=== PATIENT | male | born 1960 | race Caucasian/White ===

== ENCOUNTER 2021-02-13 11:46 | Inpatient (IN) | payer BC ==
[2021-02-13] MEDS ORDERED: Sodium Chloride 0.9% 2.5 ML Syringe FLUSH PRN (11:52)
[2021-02-13] MEDS ORDERED: Sodium Chloride 0.9% 10 ML Syringe FLUSH PRN (11:52)
--- NOTE | 2021-02-13 12:00 | EDM.PDOC ---
ED HPI GENERAL MEDICAL PROBLEM - General Chief Complaint: General Stated Complaint: SOB/EMS ARRIVAL Time Seen by Provider: 02/13/21 11:50 Source of Information: Reports: Patient, EMS - History of Present Illness INITIAL COMMENTS - FREE TEXT/NARRATIVE: Patient presents brought in EMS when at work he was found not to be acting quite right. Patient states he has been not feeling well since Saturday. He is not really able to tell what it is but is bothering him. Paramedics noted the patient was hypoxic and placed him on oxygen. No other medical information available secondary to patient's clinical condition - Related Data Allergies Allergy/AdvReac Type Severity Reaction Status Date / Time No Known Allergies Allergy Verified 02/13/21 11:55 Home Meds: Home Meds . [No Known Home Meds] 02/13/21 [History] ED ROS GENERAL - Review of Systems Review Of Systems: Unable To Obtain Reason Not Obtained: Clinical condition ED EXAM, GENERAL - Physical Exam Exam: See Below Free Text/Narrative:: O2 saturation was 91% on partial nonrebreather- low CONSTITUTIONAL: Moderate distress SKIN: Warm, dry, and intact without rash HENT: Normocephalic, atraumatic, PULMONARY: Labored breathing, tachypnea, bilateral rales CARDIOVASCULAR: regular rate, No murmur, rubs, or gallops GASTROINTESTINAL: soft, nondistended, nontender NEUROLOGIC: Patient with global confusion and only getting words out. Otherwise light touch 5 out of 5 power bilateral equal and symmetric in upper and lower extremity throughout without deficit. 2 through 12 intact. MUSCULOSKELETAL: no gross deformities, atraumatic PSYCHIATRIC: normal mood and affect Course - Vital Signs Text/Narrative:: Differential diagnosis: Pneumonia, Covid, CHF, metabolic encephalopathy, stroke, internal hemorrhage, other Patient presents to the emergency department complaining of altered mental status and hypoxia. Patient positive for Covid. Chest x-ray consistent with Covid. Patient on high flow nasal cannula. Admitted to the ICU for continued treatment and management. Critical care: I spent 45 minutes of critical care time with this patient not including reportable procedures. There was an acute impairment of an organ system with a high probability of imminent or life threatening deterioration in the patient`s condition. Interventions and changes required in the course of therapy are located in the chart. Time involved was spent in direct patient care, reviewing ancillary data, old records, consulting with decision makers, EMS, other doctors, giving orders and documenting. Last Recorded V/S: Last Vital Signs Temp 37.3 C 02/13/21 11:48 Pulse 100 02/13/21 13:20 Resp 18 02/13/21 13:20 BP 129/73 02/13/21 13:20 Pulse Ox 91 L 02/13/21 13:20 - Orders/Labs/Meds Orders: Active Orders 24 hr Category Date Time Status Admission Status [Patient Status] [ADT] Stat ADT 02/13/21 14:06 Active Cardiac Monitoring [RC] . DIRECTED Care 02/13/21 11:52 Active Cardiac Monitoring [RC] . DIRECTED Care 02/13/21 14:06 Active Pulse Oximetry [RC] ASDIRECTED Care 02/13/21 11:52 Active ABG [BLOOD GAS ARTERIAL] [BG] Stat Lab 02/13/21 14:07 Ordered BILIRUBIN DIRECT [CHEM] DAILY Lab 02/13/21 13:45 Ordered BILIRUBIN DIRECT [CHEM] DAILY Lab 02/14/21 13:45 Ordered BILIRUBIN DIRECT [CHEM] DAILY Lab 02/15/21 13:45 Ordered BILIRUBIN DIRECT [CHEM] DAILY Lab 02/16/21 13:45 Ordered BILIRUBIN DIRECT [CHEM] DAILY Lab 02/17/21 13:45 Ordered BILIRUBIN DIRECT [CHEM] Stat Lab 02/13/21 13:43 Ordered COMPREHENSIVE METABOLIC PN,CMP [CHEM] DAILY Lab 02/13/21 13:45 Ordered COMPREHENSIVE METABOLIC PN,CMP [CHEM] DAILY Lab 02/14/21 13:45 Ordered COMPREHENSIVE METABOLIC PN,CMP [CHEM] DAILY Lab 02/15/21 13:45 Ordered COMPREHENSIVE METABOLIC PN,CMP [CHEM] DAILY Lab 02/16/21 13:45 Ordered COMPREHENSIVE METABOLIC PN,CMP [CHEM] DAILY Lab 02/17/21 13:45 Ordered COMPREHENSIVE METABOLIC PN,CMP [CHEM] Stat Lab 02/13/21 13:43 Ordered CULTURE BLOOD [BC] Stat Lab 02/13/21 12:35 Received CULTURE BLOOD [BC] Stat Lab 02/13/21 12:42 Received UA W/COOPER RFLX IF INDICATED [URIN] Stat Lab 02/13/21 11:52 Ordered Sodium Chloride 0.9% [Saline Flush] Med 02/13/21 11:52 Active 10 ml FLUSH ASDIRECTED PRN Sodium Chloride 0.9% [Saline Flush] Med 02/13/21 11:52 Active 2.5 ml FLUSH ASDIRECTED PRN Blood Culture x2 Reflex Set [OM.PC] Stat Oth 02/13/21 11:52 Ordered Saline Lock Insert [OM.PC] Stat Ot 02/13/21 11:52 Ordered Medication Orders Sodium Chloride (Sodium Chloride 0.9% 10 Ml Syringe) 10 ml FLUSH ASDIRECTED PRN PRN Reason: Keep Vein Open Last Admin: 02/13/21 12:04 Dose: 10 ml Documented by: RENEE Sodium Chloride (Sodium Chloride 0.9% 2.5 Ml Syringe) 2.5 ml FLUSH ASDIRECTED PRN PRN Reason: Keep Vein Open Last Admin: 02/13/21 12:08 Dose: 2.5 ml Documented by: RENEE Labs: Laboratory Tests 02/13/21 02/13/21 02/13/21 Range/Units 11:50 11:50 11:50 WBC 6.73 (4.0-11.0) K/uL RBC 5.89 (4.50-5.90) M/uL Hgb 17.7 H (13.0-17.0) g/dL Hct 53.5 H (38.0-50.0) % MCV 90.8 (80.0-98.0) fL MCH 30.1 (27.0-32.0) pg MCHC 33.1 (31.0-37.0) g/dL RDW Std Deviation 53.0 (28.0-62.0) fl RDW Coeff of Lakshmi 16 H (11.0-15.0) % Plt Count 213 (150-400) K/uL MPV 10.70 (7.40-12.00) fL Neut % (Auto) 67.0 (48.0-80.0) % Lymph % (Auto) 15.6 L (16.0-40.0) % Mcnairy % (Auto) 17.1 H (0.0-15.0) % Eos % (Auto) 0.0 (0.0-7.0) % Baso % (Auto) 0.3 (0.0-1.5) % Neut # (Auto) 4.5 (1.4-5.7) K/uL Lymph # (Auto) 1.1 (0.6-2.4) K/uL Mcnairy # (Auto) 1.2 H (0.0-0.8) K/uL Eos # (Auto) 0.0 (0.0-0.7) K/uL Baso # (Auto) 0.0 (0.0-0.1) K/uL Nucleated RBC % 3.0 /100WBC Nucleated RBCs # 0 K/uL APTT 28.7 (18.6-31.3) SEC Sodium 133 L (136-148) mmol/L Potassium 4.9 (3.5-5.1) mmol/L Chloride 95 L (98-107) mmol/L Carbon Dioxide 31.1 (21.0-32.0) mmol/L BUN 24 H (7.0-18.0) mg/dL Creatinine 1.1 (0.8-1.3) mg/dL Est Cr Clr Drug Dosing 80.34 mL/min Estimated GFR (MDRD) > 60.0 ml/min Glucose 134 H (74-106) mg/dL Lactic Acid (0.4-2.0) mmol/L Calcium 7.6 L (8.5-10.1) mg/dL Total Bilirubin 0.9 (0.2-1.0) mg/dL AST 24 (15-37) IU/L ALT 28 (14-63) IU/L Alkaline Phosphatase 47 (46-116) U/L Troponin I < 0.050 (0.000-0.056) ng/mL C-Reactive Protein 5.90 H (0.00-0.90) mg/dL B-Natriuretic Peptide (<100) PG/ML Total Protein 7.6 (6.4-8.2) g/dL Albumin 2.8 L (3.4-5.0) g/dL Globulin 4.8 H (2.6-4.0) g/dL Albumin/Globulin Ratio 0.6 L (0.9-1.6) SARS-CoV-2 RNA (FELIZ) (NEGATIVE) 02/13/21 02/13/21 02/13/21 Range/Units 11:50 12:01 12:35 WBC (4.0-11.0) K/uL RBC (4.50-5.90) M/uL Hgb (13.0-17.0) g/dL Hct (38.0-50.0) % MCV (80.0-98.0) fL MCH (27.0-32.0) pg MCHC (31.0-37.0) g/dL RDW Std Deviation (28.0-62.0) fl RDW Coeff of Lakshmi (11.0-15.0) % Plt Count (150-400) K/uL MPV (7.40-12.00) fL Neut % (Auto) (48.0-80.0) % Lymph % (Auto) (16.0-40.0) % Mcnairy % (Auto) (0.0-15.0) % Eos % (Auto) (0.0-7.0) % Baso % (Auto) (0.0-1.5) % Neut # (Auto) (1.4-5.7) K/uL Lymph # (Auto) (0.6-2.4) K/uL Mcnairy # (Auto) (0.0-0.8) K/uL Eos # (Auto) (0.0-0.7) K/uL Baso # (Auto) (0.0-0.1) K/uL Nucleated RBC % /100WBC Nucleated RBCs # K/uL APTT (18.6-31.3) SEC Sodium (136-148) mmol/L Potassium (3.5-5.1) mmol/L Chloride (98-107) mmol/L Carbon Dioxide (21.0-32.0) mmol/L BUN (7.0-18.0) mg/dL Creatinine (0.8-1.3) mg/dL Est Cr Clr Drug Dosing mL/min Estimated GFR (MDRD) ml/min Glucose (74-106) mg/dL Lactic Acid 1.2 (0.4-2.0) mmol/L Calcium (8.5-10.1) mg/dL Total Bilirubin (0.2-1.0) mg/dL AST (15-37) IU/L ALT (14-63) IU/L Alkaline Phosphatase (46-116) U/L Troponin I (0.000-0.056) ng/mL C-Reactive Protein (0.00-0.90) mg/dL B-Natriuretic Peptide 55 (<100) PG/ML Total Protein (6.4-8.2) g/dL Albumin (3.4-5.0) g/dL Globulin (2.6-4.0) g/dL Albumin/Globulin Ratio (0.9-1.6) SARS-CoV-2 RNA (FELIZ) POSITIVE H (NEGATIVE) Meds: Medications Generic Name Dose Route Start Last Admin Trade Name Freq PRN Reason Stop Dose Admin Sodium Chloride 10 ml 02/13/21 11:52 02/13/21 12:04 Sodium Chloride 0.9% 10 Ml Syringe FLUSH 10 ml ASDIRECTED PRN Administration Keep Vein Open Sodium Chloride 2.5 ml 02/13/21 11:52 02/13/21 12:08 Sodium Chloride 0.9% 2.5 Ml Syringe FLUSH 2.5 ml ASDIRECTED PRN Administration Keep Vein Open Discontinued Medications Generic Name Dose Route Start Last Admin Trade Name Freq PRN Reason Stop Dose Admin Dexamethasone 6 mg 02/13/21 13:43 02/13/21 13:53 Dexamethasone 10 Mg/Ml Sdv IVPUSH 02/13/21 13:44 6 mg ONETIME ONE Administration Remdesivir 200 mg/ Sodium 250 mls @ 250 mls/hr 02/13/21 13:43 Chloride IV 02/13/21 13:44 ONETIME ONE Departure - Departure Time of Disposition: 14:09 Disposition: Admitted As Inpatient 68 Condition: Serious Clinical Impression: Pneumonia due to COVID-19 virus - Discharge Information Referrals: PCP,None [Primary Care Provider] - Forms: ED Department Discharge Sepsis Event Note (ED) - Focused Exam Vital Signs: Vital Signs Temp Pulse Resp BP Pulse Ox Pulse Ox 02/13/21 13:20 100 18 129/73 91 L 02/13/21 12:06 94 L 02/13/21 11:48 37.3 C 106 H 18 138/80 94 L - My Orders Last 24 Hours: My Active Orders 02/13/21 11:52 Cardiac Monitoring [RC] . DIRECTED Pulse Oximetry [RC] ASDIRECTED UA W/COOPER RFLX IF INDICATED [URIN] Stat Sodium Chloride 0.9% [Saline Flush] 10 ml FLUSH ASDIRECTED PRN Sodium Chloride 0.9% [Saline Flush] 2.5 ml FLUSH ASDIRECTED PRN Blood Culture x2 Reflex Set [OM.PC] Stat Saline Lock Insert [OM.PC] Stat 02/13/21 12:35 CULTURE BLOOD [BC] Stat 02/13/21 12:42 CULTURE BLOOD [BC] Stat 02/13/21 13:43 BILIRUBIN DIRECT [CHEM] Stat COMPREHENSIVE METABOLIC PN,CMP [CHEM] Stat 02/13/21 13:45 BILIRUBIN DIRECT [CHEM] DAILY COMPREHENSIVE METABOLIC PN,CMP [CHEM] DAILY 02/13/21 14:06 Admission Status [Patient Status] [ADT] Stat Cardiac Monitoring [RC] . DIRECTED 02/13/21 14:07 ABG [BLOOD GAS ARTERIAL] [BG] Stat 02/14/21 13:45 BILIRUBIN DIRECT [CHEM] DAILY COMPREHENSIVE METABOLIC PN,CMP [CHEM] DAILY 02/15/21 13:45 BILIRUBIN DIRECT [CHEM] DAILY COMPREHENSIVE METABOLIC PN,CMP [CHEM] DAILY 02/16/21 13:45 BILIRUBIN DIRECT [CHEM] DAILY COMPREHENSIVE METABOLIC PN,CMP [CHEM] DAILY 02/17/21 13:45 BILIRUBIN DIRECT [CHEM] DAILY COMPREHENSIVE METABOLIC PN,CMP [CHEM] DAILY - Assessment/Plan Last 24 Hours: My Active Orders 02/13/21 11:52 Cardiac Monitoring [RC] . DIRECTED Pulse Oximetry [RC] ASDIRECTED UA W/COOPER RFLX IF INDICATED [URIN] Stat Sodium Chloride 0.9% [Saline Flush] 10 ml FLUSH ASDIRECTED PRN Sodium Chloride 0.9% [Saline Flush] 2.5 ml FLUSH ASDIRECTED PRN Blood Culture x2 Reflex Set [OM.PC] Stat Saline Lock Insert [OM.PC] Stat 02/13/21 12:35 CULTURE BLOOD [BC] Stat 02/13/21 12:42 CULTURE BLOOD [BC] Stat 02/13/21 13:43 BILIRUBIN DIRECT [CHEM] Stat COMPREHENSIVE METABOLIC PN,CMP [CHEM] Stat 02/13/21 13:45 BILIRUBIN DIRECT [CHEM] DAILY COMPREHENSIVE METABOLIC PN,CMP [CHEM] DAILY 02/13/21 14:06 Admission Status [Patient Status] [ADT] Stat Cardiac Monitoring [RC] . DIRECTED 02/13/21 14:07 ABG [BLOOD GAS ARTERIAL] [BG] Stat 02/14/21 13:45 BILIRUBIN DIRECT [CHEM] DAILY COMPREHENSIVE METABOLIC PN,CMP [CHEM] DAILY 02/15/21 13:45 BILIRUBIN DIRECT [CHEM] DAILY COMPREHENSIVE METABOLIC PN,CMP [CHEM] DAILY 02/16/21 13:45 BILIRUBIN DIRECT [CHEM] DAILY COMPREHENSIVE METABOLIC PN,CMP [CHEM] DAILY 02/17/21 13:45 BILIRUBIN DIRECT [CHEM] DAILY COMPREHENSIVE METABOLIC PN,CMP [CHEM] DAILY
[2021-02-13 12:41] LABS: BLOOD UREA NITROGEN,BUN 24 mg/dL (7.0-18.0); CARBON DIOXIDE,CO2 31.1 mmol/L (21.0-32.0); CHLORIDE,CL 95 mmol/L (98-107); GLUCOSE RANDOM 134 mg/dL (74-106); POTASSIUM,K 4.9 mmol/L (3.5-5.1); SODIUM,NA 133 mmol/L (136-148)
--- NOTE | 2021-02-13 13:04 | CR ---
INDICATION: SOB. TECHNIQUE: Portable AP image of the chest. COMPARISON: None. FINDINGS: Very shallow inspiration and diffuse infiltrates. No obvious pleural effusion. Heart size at least mildly enlarged. Pulmonary veins cannot be assessed. No significant bony abnormality. IMPRESSION: Very shallow inspiration with bilateral infiltrates and a least mild cardiomegaly. Question CHF with pulmonary edema. Dictated by Sukhdev Black MD @ 02/13/2021 1:03:30 PM (Electronically Signed)
--- NOTE | 2021-02-13 13:35 | CT ---
INDICATION: Altered mental status. TECHNIQUE: CT of the head without contrast. Coronal and sagittal reformats are included. COMPARISON: None. FINDINGS: Motion artifact degrades fine detail. No acute intracranial hemorrhage. No evidence of acute cortical infarct. Slight blurring of the lazar-white matter junction may be secondary to artifact. No mass effect or midline shift. No hydrocephalus. Hyperattenuation of the intracranial vessels diffusely, possibly reflecting hemoconcentration. No acute osseous abnormalities. Left maxillary sinus mucosal thickening with dependent frothy secretions. Paranasal sinuses are otherwise clear. Mastoid air cells are clear. Normal soft tissues. IMPRESSION: 1. Motion artifact degrades fine detail. 2. Accounting for this, no acute infarction or acute intracranial hemorrhage is identified. 3. Slight blurring of the lazar-white matter junction may be secondary to artifact. Early/mild hypoxic ischemic injury could be considered in the appropriate clinical setting. Brain MRI would be useful for further evaluation if clinically indicated. 4. Diffuse hyperdensity of the intracranial vessels, possibly reflecting hemoconcentration. Please note that all CT scans at this facility use dose modulation, iterative reconstruction, and/or weight-based dosing when appropriate to reduce radiation dose to as low as reasonably achievable. Dictated by Bryan Soto MD @ 02/13/2021 1:33:29 PM (Electronically Signed)
[2021-02-13] MEDS ORDERED: REMDESIVIR 200 MG in Sodium Chloride 0.9% 250 ML IV ONE (13:43)
[2021-02-13] MEDS ORDERED: Dexamethasone 10 MG/ML SDV IVPUSH ONE (13:43)
[2021-02-13 15:03] LABS: BLOOD UREA NITROGEN,BUN 22 mg/dL (7.0-18.0); CARBON DIOXIDE,CO2 32.2 mmol/L (21.0-32.0); CHLORIDE,CL 97 mmol/L (98-107); GLUCOSE RANDOM 133 mg/dL (74-106); POTASSIUM,K 4.9 mmol/L (3.5-5.1); SODIUM,NA 134 mmol/L (136-148)
--- NOTE | 2021-02-13 15:16 | PCM.HP.2 ---
<Elle Nesbitt - Last Filed: 02/13/21 18:08> H&P History of Present Illness - General Date of Service: 02/13/21 Admit Problem/Dx: Admission Diagnosis/Problem Admission Diagnosis/Problem Viral pneumonia - History of Present Illness Initial Comments - Free Text/Narative: 60-year-old male with a history of obstructive sleep apnea is brought to the ER by EMS after coworkers found him altered and confused. I called and spoke with the patient's son, Vasile who lives in [place]. As per son the patient's only history is obstructive sleep apnea for which he uses a CPAP at night. As per the son, the patient lives in [place] alone and his , son and daughter live in [place]. They speak once per month. He is not aware of any medications his father is taken. He denies any known drug allergies. Patient is a smoker. CODE STATUS is full code. ER course: Patient presents with altered mental status and hypoxia. Labored breathing and tachypneic. T 37.3. P1 100. BP 129/73. WBC 6.73. Hgb 17.7. Hematocrit 53.5. Platelet count 213. Sodium 133. Potassium 4.9. Chloride 31.1. BUN 24. Creatinine 1.1. Glucose 134. Troponin negative. CRP 5.9. Lactic acid 1.2. BNP 55. SARS-CoV-2 positive. Patient started on dexamethasone and remdesivir. Patient is currently on Vapotherm, 45 L, FiO2 86. CXR: Bilateral infiltrates and mild cardiomegaly. Question CHF with pulmonary edema. Head CT: No acute infarction or acute intracranial hemorrhage identified. PMH: EDD Medications: None. Allergies: NKDA CODE STATUS: FULL CODE. - Related Data Allergies/Adverse Reactions: Allergies Allergy/AdvReac Type Severity Reaction Status Date / Time No Known Allergies Allergy Verified 02/13/21 11:55 Home Medications: Home Meds . [No Known Home Meds] 02/13/21 [History] Past Medical History - Past Health History Medical/Surgical History: Denies Medical/Surgical History - Infectious Disease History Infectious Disease History: Reports: None Social & Family History - Family History Family Medical History: No Pertinent Family History - Tobacco Use Tobacco Use Status *Q: Never Tobacco User - Recreational Drug Use Recreational Drug Use: No H&P Review of Systems - Review of Systems: Review Of Systems: See Below Exam - Exam Exam: See Below - Vital Signs Vital Signs: Last Vital Signs Temp 99.1 F 02/13/21 11:48 Pulse 100 02/13/21 13:20 Resp 18 02/13/21 13:20 BP 129/73 02/13/21 13:20 Pulse Ox 91 L 02/13/21 13:20 Weight: 99.79 kg - Exam Quality Assessment: Supplemental Oxygen General: Lethargic. No: Alert, Oriented, Cooperative HEENT: Conjunctiva Clear, EACs Clear Neck: Supple, Trachea Midline Lungs: Decreased Breath Sounds, Rales Cardiovascular: Regular Rhythm, Normal S1, Normal S2, Tachycardia GI/Abdominal Exam: Normal Bowel Sounds, Soft, Non-Tender Back Exam: Normal Inspection Extremities: Normal Inspection, Normal Range of Motion, Non-Tender, No Pedal Edema Peripheral Pulses: 2+: Dorsalis Pedis (L), Dorsalis Pedis (R) Skin: Warm, Dry, Intact Neuro Extensive - Mental Status: Disorientation to Person, Disorientation to Place, Disorientation to Time, Inattentive - Patient Data Lab Results Last 24 hrs: Laboratory Results - last 24 hr 02/13/21 02/13/21 02/13/21 Range/Units 11:50 11:50 11:50 WBC 6.73 (4.0-11.0) K/uL RBC 5.89 (4.50-5.90) M/uL Hgb 17.7 H (13.0-17.0) g/dL Hct 53.5 H (38.0-50.0) % MCV 90.8 (80.0-98.0) fL MCH 30.1 (27.0-32.0) pg MCHC 33.1 (31.0-37.0) g/dL RDW Std Deviation 53.0 (28.0-62.0) fl RDW Coeff of Lakshmi 16 H (11.0-15.0) % Plt Count 213 (150-400) K/uL MPV 10.70 (7.40-12.00) fL Neut % (Auto) 67.0 (48.0-80.0) % Lymph % (Auto) 15.6 L (16.0-40.0) % Garfield % (Auto) 17.1 H (0.0-15.0) % Eos % (Auto) 0.0 (0.0-7.0) % Baso % (Auto) 0.3 (0.0-1.5) % Neut # (Auto) 4.5 (1.4-5.7) K/uL Lymph # (Auto) 1.1 (0.6-2.4) K/uL Garfield # (Auto) 1.2 H (0.0-0.8) K/uL Eos # (Auto) 0.0 (0.0-0.7) K/uL Baso # (Auto) 0.0 (0.0-0.1) K/uL Nucleated RBC % 3.0 /100WBC Nucleated RBCs # 0 K/uL APTT 28.7 (18.6-31.3) SEC Sodium 133 L (136-148) mmol/L Potassium 4.9 (3.5-5.1) mmol/L Chloride 95 L (98-107) mmol/L Carbon Dioxide 31.1 (21.0-32.0) mmol/L BUN 24 H (7.0-18.0) mg/dL Creatinine 1.1 (0.8-1.3) mg/dL Est Cr Clr Drug Dosing 80.34 mL/min Estimated GFR (MDRD) > 60.0 ml/min Glucose 134 H (74-106) mg/dL Lactic Acid (0.4-2.0) mmol/L Calcium 7.6 L (8.5-10.1) mg/dL Total Bilirubin 0.9 (0.2-1.0) mg/dL AST 24 (15-37) IU/L ALT 28 (14-63) IU/L Alkaline Phosphatase 47 (46-116) U/L Troponin I < 0.050 (0.000-0.056) ng/mL C-Reactive Protein 5.90 H (0.00-0.90) mg/dL B-Natriuretic Peptide (<100) PG/ML Total Protein 7.6 (6.4-8.2) g/dL Albumin 2.8 L (3.4-5.0) g/dL Globulin 4.8 H (2.6-4.0) g/dL Albumin/Globulin Ratio 0.6 L (0.9-1.6) SARS-CoV-2 RNA (FELIZ) (NEGATIVE) 02/13/21 02/13/21 02/13/21 Range/Units 11:50 12:01 12:35 WBC (4.0-11.0) K/uL RBC (4.50-5.90) M/uL Hgb (13.0-17.0) g/dL Hct (38.0-50.0) % MCV (80.0-98.0) fL MCH (27.0-32.0) pg MCHC (31.0-37.0) g/dL RDW Std Deviation (28.0-62.0) fl RDW Coeff of Lakshmi (11.0-15.0) % Plt Count (150-400) K/uL MPV (7.40-12.00) fL Neut % (Auto) (48.0-80.0) % Lymph % (Auto) (16.0-40.0) % Garfield % (Auto) (0.0-15.0) % Eos % (Auto) (0.0-7.0) % Baso % (Auto) (0.0-1.5) % Neut # (Auto) (1.4-5.7) K/uL Lymph # (Auto) (0.6-2.4) K/uL Garfield # (Auto) (0.0-0.8) K/uL Eos # (Auto) (0.0-0.7) K/uL Baso # (Auto) (0.0-0.1) K/uL Nucleated RBC % /100WBC Nucleated RBCs # K/uL APTT (18.6-31.3) SEC Sodium (136-148) mmol/L Potassium (3.5-5.1) mmol/L Chloride (98-107) mmol/L Carbon Dioxide (21.0-32.0) mmol/L BUN (7.0-18.0) mg/dL Creatinine (0.8-1.3) mg/dL Est Cr Clr Drug Dosing mL/min Estimated GFR (MDRD) ml/min Glucose (74-106) mg/dL Lactic Acid 1.2 (0.4-2.0) mmol/L Calcium (8.5-10.1) mg/dL Total Bilirubin (0.2-1.0) mg/dL AST (15-37) IU/L ALT (14-63) IU/L Alkaline Phosphatase (46-116) U/L Troponin I (0.000-0.056) ng/mL C-Reactive Protein (0.00-0.90) mg/dL B-Natriuretic Peptide 55 (<100) PG/ML Total Protein (6.4-8.2) g/dL Albumin (3.4-5.0) g/dL Globulin (2.6-4.0) g/dL Albumin/Globulin Ratio (0.9-1.6) SARS-CoV-2 RNA (FELIZ) POSITIVE H (NEGATIVE) Result Diagrams: 02/13/21 11:50 02/13/21 14:04 Sepsis Event Note - Focused Exam Vital Signs: Vital Signs Temp Pulse Resp BP Pulse Ox Pulse Ox 02/13/21 13:20 100 18 129/73 91 L 02/13/21 12:06 94 L 02/13/21 11:48 99.1 F 106 H 18 138/80 94 L - Problem List (1) Pneumonia due to COVID-19 virus SNOMED Code(s): 418075415543422555 ICD Code: U07.1 - COVID-19; J12.82 - PNEUMONIA DUE TO CORONAVIRUS DISEASE 2 019 Status: Acute Current Visit: Yes (2) AMS (altered mental status) SNOMED Code(s): 429682248 ICD Code: R41.82 - ALTERED MENTAL STATUS, UNSPECIFIED Status: Acute Current Visit: Yes Problem List Initiated/Reviewed/Updated: Yes Orders Last 24hrs: Active Orders 24 hr Category Date Time Status Admission Status [Patient Status] [ADT] Stat ADT 02/13/21 14:06 Active Cardiac Monitoring [RC] . DIRECTED Care 02/13/21 11:52 Active Cardiac Monitoring [RC] . DIRECTED Care 02/13/21 14:06 Active Pulse Oximetry [RC] ASDIRECTED Care 02/13/21 11:52 Active ABG [BLOOD GAS ARTERIAL] [BG] Stat Lab 02/13/21 14:07 Ordered BILIRUBIN DIRECT [CHEM] DAILY Lab 02/14/21 13:45 Ordered BILIRUBIN DIRECT [CHEM] DAILY Lab 02/15/21 13:45 Ordered BILIRUBIN DIRECT [CHEM] DAILY Lab 02/16/21 13:45 Ordered BILIRUBIN DIRECT [CHEM] DAILY Lab 02/17/21 13:45 Ordered BILIRUBIN DIRECT [CHEM] Stat Lab 02/13/21 14:04 Received COMPREHENSIVE METABOLIC PN,CMP [CHEM] DAILY Lab 02/14/21 13:45 Ordered COMPREHENSIVE METABOLIC PN,CMP [CHEM] DAILY Lab 02/15/21 13:45 Ordered COMPREHENSIVE METABOLIC PN,CMP [CHEM] DAILY Lab 02/16/21 13:45 Ordered COMPREHENSIVE METABOLIC PN,CMP [CHEM] DAILY Lab 02/17/21 13:45 Ordered COMPREHENSIVE METABOLIC PN,CMP [CHEM] Stat Lab 02/13/21 14:04 Received CULTURE BLOOD [BC] Stat Lab 02/13/21 12:35 Received CULTURE BLOOD [BC] Stat Lab 02/13/21 12:42 Received UA W/RAVI RFLX IF INDICATED [URIN] Stat Lab 02/13/21 11:52 Ordered Sodium Chloride 0.9% [Saline Flush] Med 02/13/21 11:52 Active 10 ml FLUSH ASDIRECTED PRN Sodium Chloride 0.9% [Saline Flush] Med 02/13/21 11:52 Active 2.5 ml FLUSH ASDIRECTED PRN Blood Culture x2 Reflex Set [OM.PC] Stat Oth 02/13/21 11:52 Ordered Saline Lock Insert [OM.PC] Stat Oth 02/13/21 11:52 Ordered Medication Orders Sodium Chloride (Sodium Chloride 0.9% 10 Ml Syringe) 10 ml FLUSH ASDIRECTED PRN PRN Reason: Keep Vein Open Last Admin: 02/13/21 12:04 Dose: 10 ml Documented by: RENEE Sodium Chloride (Sodium Chloride 0.9% 2.5 Ml Syringe) 2.5 ml FLUSH ASDIRECTED PRN PRN Reason: Keep Vein Open Last Admin: 02/13/21 12:08 Dose: 2.5 ml Documented by: RENEE Assessment/Plan Comment:: Covid pneumonia: -Admit to ICU -Remdesivir 200mg received in the ER. Remdesivir 100 mg daily starting 02/15/20 21 x4 days. -Dexamethasone 6 mg daily. -Lovenox 40 mg daily. -Duo nebs. Combivent. -Acetaminophen 650. Zofran 4 mg. Protonix 40 mg daily. -Telemetry monitoring. Oxygen therapy. -Vapotherm: 50L, FiO2 90. Altered Mental Status: -Will obtain ABG <Jason,Hooria - Last Filed: 02/14/21 15:34> H&P History of Present Illness - General Admit Problem/Dx: Admission Diagnosis/Problem Admission Diagnosis/Problem Viral pneumonia - History of Present Illness Initial Comments - Free Text/Narative: I performed a history and physical exam of the patient and discussed management with resident. I have reviewed the residents note and agree with documented findings and plan unless otherwise specified in my note. Exam - Vital Signs Vital Signs: Last Vital Signs Temp 36.1 C 02/14/21 12:00 Pulse 88 02/13/21 18:00 Resp 16 02/14/21 13:00 BP 100/58 L 02/14/21 13:00 Pulse Ox 91 L 02/14/21 13:00 - Patient Data Lab Results Last 24 hrs: Laboratory Results - last 24 hr 02/13/21 02/13/21 02/14/21 Range/Units 16:14 17:37 01:00 WBC (4.0-11.0) K/uL RBC (4.50-5.90) M/uL Hgb (13.0-17.0) g/dL Hct (38.0-50.0) % MCV (80.0-98.0) fL MCH (27.0-32.0) pg MCHC (31.0-37.0) g/dL RDW Std Deviation (28.0-62.0) fl RDW Coeff of Lakshmi (11.0-15.0) % Plt Count (150-400) K/uL MPV (7.40-12.00) fL Add Manual Diff Neutrophils % (Manual) (48.0-80.0) % Band Neutrophils % % Lymphocytes % (Manual) (16.0-40.0) % Monocytes % (Manual) (0.0-15.0) % Nucleated RBC % /100WBC Absolute Seg Neuts (1.4-5.7) Band Neutrophils # Lymphocytes # (Manual) (0.6-2.4) Monocytes # (Manual) (0.0-0.8) Nucleated RBCs # K/uL ABG pH 7.24 L 7.27 L 7.22 L (7.35-7.45) ABG pCO2 80 H 74 H 87 H (35-45) mmHG ABG pO2 63 L 93 65 L (80-105) mmHG ABG HCO3 34 H 34 H 36 H (22-26) mEq/L ABG Total CO2 30.4 H 29.5 H 31.6 H (23-27) mmol/L ABG Base Excess 3.3 H 3.4 H 3.6 H (-2.0-3.0) Sodium (136-148) mmol/L Potassium (3.5-5.1) mmol/L Chloride (98-107) mmol/L Carbon Dioxide (21.0-32.0) mmol/L BUN (7.0-18.0) mg/dL Creatinine (0.8-1.3) mg/dL Est Cr Clr Drug Dosing mL/min Estimated GFR (MDRD) ml/min Glucose (74-106) mg/dL Calcium (8.5-10.1) mg/dL Total Bilirubin (0.2-1.0) mg/dL Direct Bilirubin (0.0-0.5) mg/dL AST (15-37) IU/L ALT (14-63) IU/L Alkaline Phosphatase (46-116) U/L Total Protein (6.4-8.2) g/dL Albumin (3.4-5.0) g/dL Globulin (2.6-4.0) g/dL Albumin/Globulin Ratio (0.9-1.6) 02/14/21 02/14/21 02/14/21 Range/Units 05:37 05:37 05:37 WBC 7.95 (4.0-11.0) K/uL RBC 5.86 (4.50-5.90) M/uL Hgb 17.6 H (13.0-17.0) g/dL Hct 55.0 H (38.0-50.0) % MCV 93.9 (80.0-98.0) fL MCH 30.0 (27.0-32.0) pg MCHC 32.0 (31.0-37.0) g/dL RDW Std Deviation 55.9 (28.0-62.0) fl RDW Coeff of Lakshmi 16 H (11.0-15.0) % Plt Count 271 (150-400) K/uL MPV 10.70 (7.40-12.00) fL Add Manual Diff YES Neutrophils % (Manual) 65 (48.0-80.0) % Band Neutrophils % 9 % Lymphocytes % (Manual) 19 (16.0-40.0) % Monocytes % (Manual) 7 (0.0-15.0) % Nucleated RBC % 4.8 /100WBC Absolute Seg Neuts 5.2 (1.4-5.7) Band Neutrophils # 0.7 Lymphocytes # (Manual) 1.5 (0.6-2.4) Monocytes # (Manual) 0.6 (0.0-0.8) Nucleated RBCs # 0 K/uL ABG pH (7.35-7.45) ABG pCO2 (35-45) mmHG ABG pO2 (80-105) mmHG ABG HCO3 (22-26) mEq/L ABG Total CO2 (23-27) mmol/L ABG Base Excess (-2.0-3.0) Sodium 140 (136-148) mmol/L Potassium 6.3 H (3.5-5.1) mmol/L Chloride 100 (98-107) mmol/L Carbon Dioxide 34.6 H (21.0-32.0) mmol/L BUN 24 H (7.0-18.0) mg/dL Creatinine 0.9 (0.8-1.3) mg/dL Est Cr Clr Drug Dosing 98.20 mL/min Estimated GFR (MDRD) > 60.0 ml/min Glucose 134 H (74-106) mg/dL Calcium 7.8 L (8.5-10.1) mg/dL Total Bilirubin 0.7 (0.2-1.0) mg/dL Direct Bilirubin 0.20 (0.0-0.5) mg/dL AST 20 (15-37) IU/L ALT 25 (14-63) IU/L Alkaline Phosphatase 45 L (46-116) U/L Total Protein 6.7 (6.4-8.2) g/dL Albumin 2.6 L (3.4-5.0) g/dL Globulin 4.1 H (2.6-4.0) g/dL Albumin/Globulin Ratio 0.6 L (0.9-1.6) 02/14/21 Range/Units 09:54 WBC (4.0-11.0) K/uL RBC (4.50-5.90) M/uL Hgb (13.0-17.0) g/dL Hct (38.0-50.0) % MCV (80.0-98.0) fL MCH (27.0-32.0) pg MCHC (31.0-37.0) g/dL RDW Std Deviation (28.0-62.0) fl RDW Coeff of Lakshmi (11.0-15.0) % Plt Count (150-400) K/uL MPV (7.40-12.00) fL Add Manual Diff Neutrophils % (Manual) (48.0-80.0) % Band Neutrophils % % Lymphocytes % (Manual) (16.0-40.0) % Monocytes % (Manual) (0.0-15.0) % Nucleated RBC % /100WBC Absolute Seg Neuts (1.4-5.7) Band Neutrophils # Lymphocytes # (Manual) (0.6-2.4) Monocytes # (Manual) (0.0-0.8) Nucleated RBCs # K/uL ABG pH 7.44 (7.35-7.45) ABG pCO2 48 H (35-45) mmHG ABG pO2 71 L (80-105) mmHG ABG HCO3 32 H (22-26) mEq/L ABG Total CO2 27.3 H (23-27) mmol/L ABG Base Excess 6.6 H (-2.0-3.0) Sodium (136-148) mmol/L Potassium (3.5-5.1) mmol/L Chloride (98-107) mmol/L Carbon Dioxide (21.0-32.0) mmol/L BUN (7.0-18.0) mg/dL Creatinine (0.8-1.3) mg/dL Est Cr Clr Drug Dosing mL/min Estimated GFR (MDRD) ml/min Glucose (74-106) mg/dL Calcium (8.5-10.1) mg/dL Total Bilirubin (0.2-1.0) mg/dL Direct Bilirubin (0.0-0.5) mg/dL AST (15-37) IU/L ALT (14-63) IU/L Alkaline Phosphatase (46-116) U/L Total Protein (6.4-8.2) g/dL Albumin (3.4-5.0) g/dL Globulin (2.6-4.0) g/dL Albumin/Globulin Ratio (0.9-1.6) Result Diagrams: 02/14/21 05:37 02/14/21 05:37 Ravi Results Last 24 hrs: Microbiology 02/13/21 12:42 Aerobic Blood Culture - Preliminary Blood - Venous - Lab Draw NO GROWTH AFTER 1 DAY Anaerobic Blood Culture - Preliminary NO GROWTH AFTER 1 DAY 02/13/21 12:35 Aerobic Blood Culture - Preliminary Blood - Venous NO GROWTH AFTER 1 DAY Anaerobic Blood Culture - Preliminary NO GROWTH AFTER 1 DAY Sepsis Event Note - Focused Exam Vital Signs: Vital Signs Temp Resp BP BP Pulse Ox 02/14/21 13:00 16 100/58 L 115/70 91 L 02/14/21 12:00 36.1 C 16 103/58 L 113/69 93 L 02/14/21 11:00 13 121/78 113/66 92 L 02/14/21 10:20 84 L 02/14/21 10:00 22 H 121/78 119/66 93 L 02/14/21 09:00 18 111/74 96 02/14/21 08:00 36.0 C L 15 121/66 96 02/14/21 07:00 12 116/74 96 02/14/21 06:00 18 116/78 96 02/14/21 05:00 16 112/77 95 02/14/21 04:00 36.1 C 18 110/74 91 L Orders Last 24hrs: Active Orders 24 hr Category Date Time Status Antiembolic Devices [RC] PER UNIT ROUTINE Care 02/13/21 15:23 Active BIPAP Adult [RT BiPAP/CPAP] [RC] ASDIRECTED Care 02/13/21 16:46 Active Cardiac Monitoring [RC] Q8H Care 02/13/21 15:22 Active Communication Order [RC] ROUTINE Care 02/14/21 03:10 Active Insert Reyes Catheter [Insert Urinary Catheter] [OM.PC] Care 02/14/21 00:45 Ordered Q24H Oxygen Therapy [RC] PRN Care 02/13/21 15:21 Active Pulse Oximetry [RC] CONTINUOUS Care 02/13/21 15:21 Active RT Aerosol Therapy [RC] ASDIRECTED Care 02/13/21 15:24 Active RT Post Treatment Assessment [RC] Click to Edit Care 02/13/21 15:25 Active RT Pre-Treatment Assessment [RC] Click to Edit Care 02/13/21 15:25 Active Urinary Catheter Assessment [RC] Q4HR Care 02/14/21 00:40 Active VTE/DVT Education [RC] PER UNIT ROUTINE Care 02/13/21 15:21 Active Vital Signs [RC] Q1H Care 02/13/21 15:21 Active Regular Diet [DIET] Diet 02/14/21 Dinner Active ABG [BLOOD GAS ARTERIAL] [BG] Routine Lab 02/14/21 06:00 Ordered BILIRUBIN DIRECT [CHEM] DAILY Lab 02/15/21 13:45 Ordered BILIRUBIN DIRECT [CHEM] DAILY Lab 02/16/21 13:45 Ordered BILIRUBIN DIRECT [CHEM] DAILY Lab 02/17/21 13:45 Ordered CBC WITH AUTO DIFF [HEME] DAILY Lab 02/15/21 05:11 Ordered CBC WITH AUTO DIFF [HEME] DAILY Lab 02/16/21 05:11 Ordered CBC WITH AUTO DIFF [HEME] DAILY Lab 02/17/21 05:11 Ordered CBC WITH AUTO DIFF [HEME] DAILY Lab 02/18/21 05:11 Ordered CBC WITH AUTO DIFF [HEME] DAILY Lab 02/19/21 05:11 Ordered CBC WITH AUTO DIFF [HEME] DAILY Lab 02/20/21 05:11 Ordered COMPREHENSIVE METABOLIC PN,CMP [CHEM] DAILY Lab 02/15/21 15:30 Ordered COMPREHENSIVE METABOLIC PN,CMP [CHEM] DAILY Lab 02/16/21 15:30 Ordered COMPREHENSIVE METABOLIC PN,CMP [CHEM] DAILY Lab 02/17/21 15:30 Ordered COMPREHENSIVE METABOLIC PN,CMP [CHEM] DAILY Lab 02/18/21 15:30 Ordered COMPREHENSIVE METABOLIC PN,CMP [CHEM] DAILY Lab 02/19/21 15:30 Ordered COMPREHENSIVE METABOLIC PN,CMP [CHEM] DAILY Lab 02/20/21 15:30 Ordered Acetaminophen [TylenoL] Med 02/13/21 16:00 Active 650 mg PO Q4H PRN Albuterol/Ipratropium [Combivent Respimat] Med 02/13/21 18:00 Active See Dose Instructions INH QID Albuterol/Ipratropium [DuoNeb 3.0-0.5 MG/3 ML] Med 02/13/21 15:21 Active 3 ml NEB Q4HRRT PRN Enoxaparin [Lovenox] Med 02/13/21 15:30 Active 40 mg SUBCUT Q24H Glucagon,Human Recombinant [GlucaGen] Med 02/14/21 08:57 Active 1 mg IM ASDIRECTED PRN Ondansetron [Zofran] Med 02/13/21 16:00 Active 4 mg IVPUSH Q4H PRN Pantoprazole [ProTONIX IV] 40 mg Med 02/14/21 09:00 Active Sodium Chloride 0.9% [Normal Saline] 10 ml IV DAILY Remdesivir 100 mg Med 02/14/21 15:00 Active Sodium Chloride 0.9% [Normal Saline] 100 ml IV Q24H dexAMETHasone [Decadron] Med 02/14/21 15:00 Active 6 mg IVPUSH Q24H Arterial Line Insertion [OM.PC] Routine Oth 02/14/21 08:43 Ordered Isolation [COMM] Stat Oth 02/13/21 15:25 Active Sequential Compression Device [OM.PC] Per Unit Routine Oth 02/13/21 15:22 Ordered Resuscitation Status Routine Resus Stat 02/13/21 15:21 Ordered Medication Orders Acetaminophen (Acetaminophen 325 Mg Tab) 650 mg PO Q4H PRN PRN Reason: Pain (Mild 1-3)/fever Albuterol/Ipratropium (Albuterol/Ipratropium 3.0-0.5 Mg/3 Ml Neb Soln) 3 ml NEB Q4HRRT PRN PRN Reason: Shortness Of Breath/wheezing Last Admin: 02/14/21 05:19 Dose: 3 ml Documented by: Admin: 02/14/21 02:07 Dose: 3 ml Documented by: SILVIA Albuterol/Ipratropium (Albuterol/Ipratropium 4 Gm Inhalation [place]) 0 gm INH QID [facility] Last Admin: 02/14/21 13:11 Dose: 1 puff Documented by: Admin: 02/14/21 05:18 Dose: Not Given Documented by: Admin: 02/14/21 01:57 Dose: Not Given Documented by: Admin: 02/13/21 17:21 Dose: Not Given Documented by: SAM Dexamethasone (Dexamethasone 10 Mg/Ml Sdv) 6 mg IVPUSH Q24H [facility] Stop: 02/23/21 15:01 Enoxaparin Sodium (Enoxaparin 40 Mg/0.4 Ml Syringe) 40 mg SUBCUT Q24H [facility] Last Admin: 02/13/21 16:27 Dose: 40 mg Documented by: ABHI Glucagon (Glucagon,Human Recombinant 1 Mg Vial) 1 mg IM ASDIRECTED PRN PRN Reason: Hypoglycemia Remdesivir 100 mg/ Sodium (Chloride) 100 mls @ 100 mls/hr IV Q24H [facility] Stop: 02/17/21 15:59 Pantoprazole Sodium 40 mg/ (Sodium Chloride) 10 mls @ 300 mls/hr IV DAILY [facility] Last Admin: 02/14/21 08:21 Dose: 300 mls/hr Documented by: FLORENCIA Ondansetron HCl (Ondansetron 4 Mg/2 Ml Sdv) 4 mg IVPUSH Q4H PRN PRN Reason: Nausea/Vomiting Sodium Chloride (Sodium Chloride 0.9% 10 Ml Syringe) 10 ml FLUSH ASDIRECTED PRN PRN Reason: Keep Vein Open Last Admin: 02/13/21 12:04 Dose: 10 ml Documented by: RENEE Sodium Chloride (Sodium Chloride 0.9% 2.5 Ml Syringe) 2.5 ml FLUSH ASDIRECTED PRN PRN Reason: Keep Vein Open Last Admin: 02/13/21 12:08 Dose: 2.5 ml Documented by: RENEE
[2021-02-13] MEDS ORDERED: Acetaminophen 325 MG Tab PO PRN ×2 (15:25→16:00)
[2021-02-13] MEDS ORDERED: Pantoprazole 40 MG in Sodium Chloride 0.9% 10 ML IV SCH (15:30)
[2021-02-13] MEDS ORDERED: Ondansetron 4 MG/2 ML SDV IVPUSH PRN (16:00)
[2021-02-13] MEDS: Enoxaparin 40 MG/0.4 ML Syringe SUBCUT SCH (16:27)
--- NOTE | 2021-02-13 16:54 | PN ---
THC Physician - Brief Progress [id number]/25/2021 16:42[facility] Sadaf Garcia, [place] - YUNN (ALICIA) - CARIN ALESHA MERIDADate of Service 02/13/2021 16:42HPI/Ev ents of Note eICU Admission Note60 y/o male brought to the ED with AMS. PMH significant for EDD on C PAP at home. In the ED patient was hypoxic and encephalopathic, COVID PCR positive, other labs unrema rkable, CXR showed bilateral airspace disease. Patient was started on HHFNC. . Patient was admitted t o ICU.Per RN report, upon admission to ICU, mental status was worse, ABG was checked and showed acute resp acidosis with pCO2 of 80, pH 7.24 and pO2 63, so patient was placed on BiPAPeICU Recommendation s:Continue BiPAP support as tolerated.Repeat ABG 1h after initiation of BiPAPCOVID treatment per hosp ital policySelf proning once mental status improves.DVT and PUD prophylaxisThank you for allowing us to participate in the care of your patient.Interventions Major-Change in mental status - evaluation a nd management, Hypercarbia - evaluation and management, Hypoxemia - evaluation and managementIntermed iate-Communication with other healthcare providers and/or family
[2021-02-13] MEDS: Albuterol/Ipratropium 4 GM Inhalation Spray INH SCH (17:21)
--- NOTE | 2021-02-14 00:37 | PN ---
[facility] Physician - Brief Progress [id number]/26/2021 00:30[facility] Sadaf Garcia, [place] - [facility] - ALESHA FAITH COVID+Date of Service 02/14/2021 00: 30HPI/Events of Note Discussed with RN: Pt remians on BiPAP and now has had altered mental status- h is speech has declined /not following commands at present. Moves all ext to deep pain.Initial CT hea d reviewed with RN.RN also asking about bryan for I+Os.Plan: check ABG now, repeat CT head now, place bryan for accurate I+Os, trend Cr, consider MRI pending CT results, consider neuro eval when availab le.Interventions Minor-Communication with other healthcare providers and/or familyElectronically Sign ed by: NATE DEL ANGEL () on 02/14/2021 00:36
[2021-02-14] MEDS: Albuterol/Ipratropium 4 GM Inhalation Spray INH SCH ×4 (01:57→18:22)
[2021-02-14] MEDS: Albuterol/Ipratropium 3.0-0.5 MG/3 ML Neb Soln NEB PRN ×3 (02:07→23:19)
--- NOTE | 2021-02-14 02:45 | CT ---
INDICATION: Change in mental status. COMPARISON: CT of the head from yesterday at 1246 hours. TECHNIQUE: CT examination of the head was performed with 0.8 and 3 mm thick axial and 0.8 mm thick coronal and 3 mm thick sagittal sections without intravenous contrast. Images were obtained from the vertex of the skull through the skull base, and I examined the images with the brain and bone windows. Please note that all CT scans at this facility use dose modulation, iterative reconstruction, and/or weight-based dosing when appropriate to reduce radiation dose to as low as reasonably achievable. FINDINGS: There is continued asymmetry of the lateral ventricles, with the right lateral ventricle again seen to be moderately dilated compared to the left. This is within limits of normal variation. There is no sign of mass effect, mass lesion, hemorrhage, or edema. Olvera-white differentiation is normal. The ventricles and sulci are normal in appearance for the patient`s age, aside from the asymmetry described above. Again seen is increased conspicuity of all the intracranial vessels consistent with hemoconcentration. Incidental note is again made of a partially empty sella with mild dilatation of the sella, suggestive of involution of a pituitary adenoma. The visualized portions of the orbits are normal in appearance. Again seen is moderate mucosal thickening in the left maxillary sinus from chronic sinusitis. The rest of the visualized paranasal sinuses and mastoids are clear. The osseous structures are normal in their appearance with no sign of abnormality in the skull base or calvarium. IMPRESSION: No sign of acute injury to the brain. Stable asymmetry of the lateral ventricles, right remaining moderately enlarged compared to the left, within limits of normal variation. Stable moderate chronic left maxillary sinusitis. Empty, mildly enlarged pituitary fossa. Please note that all CT scans at this facility use dose modulation, iterative reconstruction, and/or weight-based dosing when appropriate to reduce radiation dose to as low as reasonably achievable. Dictated by Dereje Monae MD @ 02/14/2021 2:43:47 AM (Electronically Signed)
--- NOTE | 2021-02-14 02:59 | PN ---
THC Physician - Brief Progress [id number]/26/2021 02:55[facility] Reyez Sadaf figueroa, [place] - CARIN (ALICIA) - ALESHA FAITH COVID+Date of Service 02/14/2021 02: 55HPI/Events of Note ABG reviewed with RN. CT reviewed with RN.Plan: increase BiPAP to 20/8, await r epeat ABG.Interventions Minor-Communication with other healthcare providers and/or familyElectronical ly Signed by: NATE DEL ANGEL () on 02/14/2021 02:58
[2021-02-14 06:39] LABS: BLOOD UREA NITROGEN,BUN 24 mg/dL (7.0-18.0); CARBON DIOXIDE,CO2 34.6 mmol/L (21.0-32.0); CHLORIDE,CL 100 mmol/L (98-107); GLUCOSE RANDOM 134 mg/dL (74-106); POTASSIUM,K 6.3 mmol/L (3.5-5.1); SODIUM,NA 140 mmol/L (136-148)
[2021-02-14] MEDS: Pantoprazole 40 MG in Sodium Chloride 0.9% 10 ML IV SCH (08:21)
[2021-02-14] MEDS ORDERED: Insulin Regular, Human 100 Units/ML 10 ML Vial IVPUSH ONE (08:57)
[2021-02-14] MEDS ORDERED: 50% Dextrose in Water 50 ML Syringe IVPUSH ONE (08:57)
[2021-02-14] MEDS ORDERED: Glucagon,Human Recombinant 1 MG Vial IM PRN (08:57)
[2021-02-14] MEDS ORDERED: Calcium Gluconate 10% 1 GM/10 ML SDV IVPUSH ONE (08:58)
[2021-02-14] MEDS ORDERED: Pantoprazole 40 MG Vial IV SCH (09:00)
[2021-02-14] MEDS ORDERED: Calcium Gluconate 1 GM in Sodium Chloride 0.9% 100 ML IV ONE (09:15)
--- NOTE | 2021-02-14 10:09 | PCM.SN.2 ---
- Free Text/Narrative Note: Consulted to place arterial line. Pt. consented for procedure. Chloraprep and sterile technique used. Placed 20 ga arrow catheter to right wrist x 2 attempts. First attempt by feel unsuccessful. Pt. very painful. Injected 2% lidocaine skin wheel and attempted second time with ultrasound. Arterial line placed under direct visualization to right radial artery and secured. Good waveform. Pt. tolerated procedure well. Time Documentation
[2021-02-14] MEDS ORDERED: REMDESIVIR 100 MG in Sodium Chloride 0.9% 100 ML IV SCH (15:00)
--- NOTE | 2021-02-14 15:13 | PCM.POSTAN ---
POST ANESTHESIA ASSESSMENT - MENTAL STATUS Mental Status: Alert, Oriented - VITAL SIGNS Vital Signs: Last Vital Signs Temp 97.0 F 02/14/21 12:00 Pulse 88 02/13/21 18:00 Resp 16 02/14/21 13:00 BP 100/58 L 02/14/21 13:00 Pulse Ox 91 L 02/14/21 13:00 - RESPIRATORY Respiratory Status: Respiratory Rate WNL, Airway Patent, O2 Saturation Stable - CARDIOVASCULAR CV Status: Pulse Rate WNL, Blood Pressure Stable - GASTROINTESTINAL GI Status: No Symptoms - POST OP HYDRATION Hydration Status: Adequate & Stable
--- NOTE | 2021-02-14 15:13 | PCM48HPAN ---
Post Anesthesia Note - EVALUATION WITHIN 48HRS OF ANESTHETIC Vital Signs in Normal Range: Yes Patient Participated in Evaluation: Yes Respiratory Function Stable: Yes Airway Patent: Yes Cardiovascular Function Stable: Yes Hydration Status Stable: Yes Pain Control Satisfactory: Yes Nausea and Vomiting Control Satisfactory: Yes Mental Status Recovered: Yes Vital Signs: Last Vital Signs Temp 97.0 F 02/14/21 12:00 Pulse 88 02/13/21 18:00 Resp 16 02/14/21 13:00 BP 100/58 L 02/14/21 13:00 Pulse Ox 91 L 02/14/21 13:00
--- NOTE | 2021-02-14 15:37 | PCM.PN ---
- General Info Date of Service: 02/14/21 Admission Dx/Problem (Free Text): Admission Diagnosis/Problem Admission Diagnosis/Problem Viral pneumonia Subjective Update: Patient seen at bedside, awake alert oriented, off the BiPAP on high flow nasal cannula, a.m. ABG noted hypercapnia is almost resolved. - Review of Systems General: Reports: Weakness, Fatigue. Denies: Fever Cardiovascular: Denies: Chest Pain, Palpitations Gastrointestinal: Denies: Abdominal Pain, Constipation Genitourinary: Denies: Dysuria, Frequency, Burning Musculoskeletal: Denies: Neck Pain, Shoulder Pain Skin: Denies: Cyanosis, Jaundice Neurological: Reports: Headache. Denies: Confusion, Dizziness, Numbness, Paresthesia, Pre-Existing Deficit Psychiatric: Denies: Confusion, Depression, Mood Lability, Anxiety, Suicidal Ideation, Homicidal Ideation - Patient Data Vitals - Most Recent: Last Vital Signs Temp 36.1 C 02/14/21 12:00 Pulse 88 02/13/21 18:00 Resp 16 02/14/21 13:00 BP 100/58 L 02/14/21 13:00 Pulse Ox 91 L 02/14/21 13:00 Weight - Most Recent: 97.159 kg I&O - Last 24 Hours: Intake & Output 02/14/21 02/14/21 02/14/21 06:59 14:59 22:59 Intake Total 0 Output Total 400 Balance -400 Lab Results Last 24 Hours: Laboratory Results - last 24 hr 02/13/21 02/13/21 02/14/21 Range/Units 16:14 17:37 01:00 WBC (4.0-11.0) K/uL RBC (4.50-5.90) M/uL Hgb (13.0-17.0) g/dL Hct (38.0-50.0) % MCV (80.0-98.0) fL MCH (27.0-32.0) pg MCHC (31.0-37.0) g/dL RDW Std Deviation (28.0-62.0) fl RDW Coeff of Lakshmi (11.0-15.0) % Plt Count (150-400) K/uL MPV (7.40-12.00) fL Add Manual Diff Neutrophils % (Manual) (48.0-80.0) % Band Neutrophils % % Lymphocytes % (Manual) (16.0-40.0) % Monocytes % (Manual) (0.0-15.0) % Nucleated RBC % /100WBC Absolute Seg Neuts (1.4-5.7) Band Neutrophils # Lymphocytes # (Manual) (0.6-2.4) Monocytes # (Manual) (0.0-0.8) Nucleated RBCs # K/uL ABG pH 7.24 L 7.27 L 7.22 L (7.35-7.45) ABG pCO2 80 H 74 H 87 H (35-45) mmHG ABG pO2 63 L 93 65 L (80-105) mmHG ABG HCO3 34 H 34 H 36 H (22-26) mEq/L ABG Total CO2 30.4 H 29.5 H 31.6 H (23-27) mmol/L ABG Base Excess 3.3 H 3.4 H 3.6 H (-2.0-3.0) Sodium (136-148) mmol/L Potassium (3.5-5.1) mmol/L Chloride (98-107) mmol/L Carbon Dioxide (21.0-32.0) mmol/L BUN (7.0-18.0) mg/dL Creatinine (0.8-1.3) mg/dL Est Cr Clr Drug Dosing mL/min Estimated GFR (MDRD) ml/min Glucose (74-106) mg/dL Calcium (8.5-10.1) mg/dL Total Bilirubin (0.2-1.0) mg/dL Direct Bilirubin (0.0-0.5) mg/dL AST (15-37) IU/L ALT (14-63) IU/L Alkaline Phosphatase (46-116) U/L Total Protein (6.4-8.2) g/dL Albumin (3.4-5.0) g/dL Globulin (2.6-4.0) g/dL Albumin/Globulin Ratio (0.9-1.6) 02/14/21 02/14/21 02/14/21 Range/Units 05:37 05:37 05:37 WBC 7.95 (4.0-11.0) K/uL RBC 5.86 (4.50-5.90) M/uL Hgb 17.6 H (13.0-17.0) g/dL Hct 55.0 H (38.0-50.0) % MCV 93.9 (80.0-98.0) fL MCH 30.0 (27.0-32.0) pg MCHC 32.0 (31.0-37.0) g/dL RDW Std Deviation 55.9 (28.0-62.0) fl RDW Coeff of Lakshmi 16 H (11.0-15.0) % Plt Count 271 (150-400) K/uL MPV 10.70 (7.40-12.00) fL Add Manual Diff YES Neutrophils % (Manual) 65 (48.0-80.0) % Band Neutrophils % 9 % Lymphocytes % (Manual) 19 (16.0-40.0) % Monocytes % (Manual) 7 (0.0-15.0) % Nucleated RBC % 4.8 /100WBC Absolute Seg Neuts 5.2 (1.4-5.7) Band Neutrophils # 0.7 Lymphocytes # (Manual) 1.5 (0.6-2.4) Monocytes # (Manual) 0.6 (0.0-0.8) Nucleated RBCs # 0 K/uL ABG pH (7.35-7.45) ABG pCO2 (35-45) mmHG ABG pO2 (80-105) mmHG ABG HCO3 (22-26) mEq/L ABG Total CO2 (23-27) mmol/L ABG Base Excess (-2.0-3.0) Sodium 140 (136-148) mmol/L Potassium 6.3 H (3.5-5.1) mmol/L Chloride 100 (98-107) mmol/L Carbon Dioxide 34.6 H (21.0-32.0) mmol/L BUN 24 H (7.0-18.0) mg/dL Creatinine 0.9 (0.8-1.3) mg/dL Est Cr Clr Drug Dosing 98.20 mL/min Estimated GFR (MDRD) > 60.0 ml/min Glucose 134 H (74-106) mg/dL Calcium 7.8 L (8.5-10.1) mg/dL Total Bilirubin 0.7 (0.2-1.0) mg/dL Direct Bilirubin 0.20 (0.0-0.5) mg/dL AST 20 (15-37) IU/L ALT 25 (14-63) IU/L Alkaline Phosphatase 45 L (46-116) U/L Total Protein 6.7 (6.4-8.2) g/dL Albumin 2.6 L (3.4-5.0) g/dL Globulin 4.1 H (2.6-4.0) g/dL Albumin/Globulin Ratio 0.6 L (0.9-1.6) 02/14/21 Range/Units 09:54 WBC (4.0-11.0) K/uL RBC (4.50-5.90) M/uL Hgb (13.0-17.0) g/dL Hct (38.0-50.0) % MCV (80.0-98.0) fL MCH (27.0-32.0) pg MCHC (31.0-37.0) g/dL RDW Std Deviation (28.0-62.0) fl RDW Coeff of Lakshmi (11.0-15.0) % Plt Count (150-400) K/uL MPV (7.40-12.00) fL Add Manual Diff Neutrophils % (Manual) (48.0-80.0) % Band Neutrophils % % Lymphocytes % (Manual) (16.0-40.0) % Monocytes % (Manual) (0.0-15.0) % Nucleated RBC % /100WBC Absolute Seg Neuts (1.4-5.7) Band Neutrophils # Lymphocytes # (Manual) (0.6-2.4) Monocytes # (Manual) (0.0-0.8) Nucleated RBCs # K/uL ABG pH 7.44 (7.35-7.45) ABG pCO2 48 H (35-45) mmHG ABG pO2 71 L (80-105) mmHG ABG HCO3 32 H (22-26) mEq/L ABG Total CO2 27.3 H (23-27) mmol/L ABG Base Excess 6.6 H (-2.0-3.0) Sodium (136-148) mmol/L Potassium (3.5-5.1) mmol/L Chloride (98-107) mmol/L Carbon Dioxide (21.0-32.0) mmol/L BUN (7.0-18.0) mg/dL Creatinine (0.8-1.3) mg/dL Est Cr Clr Drug Dosing mL/min Estimated GFR (MDRD) ml/min Glucose (74-106) mg/dL Calcium (8.5-10.1) mg/dL Total Bilirubin (0.2-1.0) mg/dL Direct Bilirubin (0.0-0.5) mg/dL AST (15-37) IU/L ALT (14-63) IU/L Alkaline Phosphatase (46-116) U/L Total Protein (6.4-8.2) g/dL Albumin (3.4-5.0) g/dL Globulin (2.6-4.0) g/dL Albumin/Globulin Ratio (0.9-1.6) Ravi Results Last 24 Hours: Microbiology 02/13/21 12:42 Aerobic Blood Culture - Preliminary Blood - Venous - Lab Draw NO GROWTH AFTER 1 DAY Anaerobic Blood Culture - Preliminary NO GROWTH AFTER 1 DAY 02/13/21 12:35 Aerobic Blood Culture - Preliminary Blood - Venous NO GROWTH AFTER 1 DAY Anaerobic Blood Culture - Preliminary NO GROWTH AFTER 1 DAY Med Orders - Current: Current Medications Acetaminophen (Acetaminophen 325 Mg Tab) 650 mg PO Q4H PRN PRN Reason: Pain (Mild 1-3)/fever Albuterol/Ipratropium (Albuterol/Ipratropium 3.0-0.5 Mg/3 Ml Neb Soln) 3 ml NEB Q4HRRT PRN PRN Reason: Shortness Of Breath/wheezing Last Admin: 02/14/21 05:19 Dose: 3 ml Documented by: Albuterol/Ipratropium (Albuterol/Ipratropium 4 Gm Inhalation [place]) 0 gm INH QID [facility] Last Admin: 02/14/21 13:11 Dose: 1 puff Documented by: Dexamethasone (Dexamethasone 10 Mg/Ml Sdv) 6 mg IVPUSH Q24H [facility] Stop: 02/23/21 15:01 Enoxaparin Sodium (Enoxaparin 40 Mg/0.4 Ml Syringe) 40 mg SUBCUT Q24H [facility] Last Admin: 02/13/21 16:27 Dose: 40 mg Documented by: Glucagon (Glucagon,Human Recombinant 1 Mg Vial) 1 mg IM ASDIRECTED PRN PRN Reason: Hypoglycemia Remdesivir 100 mg/ Sodium (Chloride) 100 mls @ 100 mls/hr IV Q24H [facility] Stop: 02/17/21 15:59 Pantoprazole Sodium 40 mg/ (Sodium Chloride) 10 mls @ 300 mls/hr IV DAILY [facility] Last Admin: 02/14/21 08:21 Dose: 300 mls/hr Documented by: Ondansetron HCl (Ondansetron 4 Mg/2 Ml Sdv) 4 mg IVPUSH Q4H PRN PRN Reason: Nausea/Vomiting Sodium Chloride (Sodium Chloride 0.9% 10 Ml Syringe) 10 ml FLUSH ASDIRECTED PRN PRN Reason: Keep Vein Open Last Admin: 02/13/21 12:04 Dose: 10 ml Documented by: Sodium Chloride (Sodium Chloride 0.9% 2.5 Ml Syringe) 2.5 ml FLUSH ASDIRECTED PRN PRN Reason: Keep Vein Open Last Admin: 02/13/21 12:08 Dose: 2.5 ml Documented by: Discontinued Medications Dexamethasone (Dexamethasone 10 Mg/Ml Sdv) 6 mg IVPUSH ONETIME ONE Stop: 02/13/21 13:44 Last Admin: 02/13/21 13:53 Dose: 6 mg Documented by: Dextrose/Water (50% Dextrose In Water 50 Ml Syringe) 50 ml IVPUSH ONETIME ONE Stop: 02/14/21 08:58 Last Admin: 02/14/21 09:33 Dose: 50 ml Documented by: Remdesivir 200 mg/ Sodium (Chloride) 250 mls @ 250 mls/hr IV ONETIME ONE Stop: 02/13/21 13:44 Last Admin: 02/13/21 14:32 Dose: 250 mls/hr Documented by: Calcium Gluconate 1 gm/ Sodium (Chloride) 110 mls @ 660 mls/hr IV ONETIME ONE Stop: 02/14/21 09:24 Last Admin: 02/14/21 09:49 Dose: 660 mls/hr Documented by: Insulin Human Regular (Insulin Regular, Human 100 Units/Ml 10 Ml Vial) 10 unit IVPUSH ONETIME ONE; Protocol Stop: 02/14/21 08:58 Last Admin: 02/14/21 09:34 Dose: 10 units Documented by: - Exam Quality Assessment: Supplemental Oxygen Urinary Catheter Total Time: 0Days 12Hours General: Alert, Oriented, Cooperative, Mild Distress Neck: Supple Lungs: Normal Respiratory Effort, Decreased Breath Sounds, Rales Cardiovascular: Regular Rate, Regular Rhythm GI/Abdominal Exam: Normal Bowel Sounds, Soft, Non-Tender - Patient Data Lab Results Last 24 hrs: Laboratory Results - last 24 hr 02/13/21 02/13/21 02/14/21 Range/Units 16:14 17:37 01:00 WBC (4.0-11.0) K/uL RBC (4.50-5.90) M/uL Hgb (13.0-17.0) g/dL Hct (38.0-50.0) % MCV (80.0-98.0) fL MCH (27.0-32.0) pg MCHC (31.0-37.0) g/dL RDW Std Deviation (28.0-62.0) fl RDW Coeff of Lakshmi (11.0-15.0) % Plt Count (150-400) K/uL MPV (7.40-12.00) fL Add Manual Diff Neutrophils % (Manual) (48.0-80.0) % Band Neutrophils % % Lymphocytes % (Manual) (16.0-40.0) % Monocytes % (Manual) (0.0-15.0) % Nucleated RBC % /100WBC Absolute Seg Neuts (1.4-5.7) Band Neutrophils # Lymphocytes # (Manual) (0.6-2.4) Monocytes # (Manual) (0.0-0.8) Nucleated RBCs # K/uL ABG pH 7.24 L 7.27 L 7.22 L (7.35-7.45) ABG pCO2 80 H 74 H 87 H (35-45) mmHG ABG pO2 63 L 93 65 L (80-105) mmHG ABG HCO3 34 H 34 H 36 H (22-26) mEq/L ABG Total CO2 30.4 H 29.5 H 31.6 H (23-27) mmol/L ABG Base Excess 3.3 H 3.4 H 3.6 H (-2.0-3.0) Sodium (136-148) mmol/L Potassium (3.5-5.1) mmol/L Chloride (98-107) mmol/L Carbon Dioxide (21.0-32.0) mmol/L BUN (7.0-18.0) mg/dL Creatinine (0.8-1.3) mg/dL Est Cr Clr Drug Dosing mL/min Estimated GFR (MDRD) ml/min Glucose (74-106) mg/dL Calcium (8.5-10.1) mg/dL Total Bilirubin (0.2-1.0) mg/dL Direct Bilirubin (0.0-0.5) mg/dL AST (15-37) IU/L ALT (14-63) IU/L Alkaline Phosphatase (46-116) U/L Total Protein (6.4-8.2) g/dL Albumin (3.4-5.0) g/dL Globulin (2.6-4.0) g/dL Albumin/Globulin Ratio (0.9-1.6) 02/14/21 02/14/21 02/14/21 Range/Units 05:37 05:37 05:37 WBC 7.95 (4.0-11.0) K/uL RBC 5.86 (4.50-5.90) M/uL Hgb 17.6 H (13.0-17.0) g/dL Hct 55.0 H (38.0-50.0) % MCV 93.9 (80.0-98.0) fL MCH 30.0 (27.0-32.0) pg MCHC 32.0 (31.0-37.0) g/dL RDW Std Deviation 55.9 (28.0-62.0) fl RDW Coeff of Lakshmi 16 H (11.0-15.0) % Plt Count 271 (150-400) K/uL MPV 10.70 (7.40-12.00) fL Add Manual Diff YES Neutrophils % (Manual) 65 (48.0-80.0) % Band Neutrophils % 9 % Lymphocytes % (Manual) 19 (16.0-40.0) % Monocytes % (Manual) 7 (0.0-15.0) % Nucleated RBC % 4.8 /100WBC Absolute Seg Neuts 5.2 (1.4-5.7) Band Neutrophils # 0.7 Lymphocytes # (Manual) 1.5 (0.6-2.4) Monocytes # (Manual) 0.6 (0.0-0.8) Nucleated RBCs # 0 K/uL ABG pH (7.35-7.45) ABG pCO2 (35-45) mmHG ABG pO2 (80-105) mmHG ABG HCO3 (22-26) mEq/L ABG Total CO2 (23-27) mmol/L ABG Base Excess (-2.0-3.0) Sodium 140 (136-148) mmol/L Potassium 6.3 H (3.5-5.1) mmol/L Chloride 100 (98-107) mmol/L Carbon Dioxide 34.6 H (21.0-32.0) mmol/L BUN 24 H (7.0-18.0) mg/dL Creatinine 0.9 (0.8-1.3) mg/dL Est Cr Clr Drug Dosing 98.20 mL/min Estimated GFR (MDRD) > 60.0 ml/min Glucose 134 H (74-106) mg/dL Calcium 7.8 L (8.5-10.1) mg/dL Total Bilirubin 0.7 (0.2-1.0) mg/dL Direct Bilirubin 0.20 (0.0-0.5) mg/dL AST 20 (15-37) IU/L ALT 25 (14-63) IU/L Alkaline Phosphatase 45 L (46-116) U/L Total Protein 6.7 (6.4-8.2) g/dL Albumin 2.6 L (3.4-5.0) g/dL Globulin 4.1 H (2.6-4.0) g/dL Albumin/Globulin Ratio 0.6 L (0.9-1.6) 02/14/21 Range/Units 09:54 WBC (4.0-11.0) K/uL RBC (4.50-5.90) M/uL Hgb (13.0-17.0) g/dL Hct (38.0-50.0) % MCV (80.0-98.0) fL MCH (27.0-32.0) pg MCHC (31.0-37.0) g/dL RDW Std Deviation (28.0-62.0) fl RDW Coeff of Lakshmi (11.0-15.0) % Plt Count (150-400) K/uL MPV (7.40-12.00) fL Add Manual Diff Neutrophils % (Manual) (48.0-80.0) % Band Neutrophils % % Lymphocytes % (Manual) (16.0-40.0) % Monocytes % (Manual) (0.0-15.0) % Nucleated RBC % /100WBC Absolute Seg Neuts (1.4-5.7) Band Neutrophils # Lymphocytes # (Manual) (0.6-2.4) Monocytes # (Manual) (0.0-0.8) Nucleated RBCs # K/uL ABG pH 7.44 (7.35-7.45) ABG pCO2 48 H (35-45) mmHG ABG pO2 71 L (80-105) mmHG ABG HCO3 32 H (22-26) mEq/L ABG Total CO2 27.3 H (23-27) mmol/L ABG Base Excess 6.6 H (-2.0-3.0) Sodium (136-148) mmol/L Potassium (3.5-5.1) mmol/L Chloride (98-107) mmol/L Carbon Dioxide (21.0-32.0) mmol/L BUN (7.0-18.0) mg/dL Creatinine (0.8-1.3) mg/dL Est Cr Clr Drug Dosing mL/min Estimated GFR (MDRD) ml/min Glucose (74-106) mg/dL Calcium (8.5-10.1) mg/dL Total Bilirubin (0.2-1.0) mg/dL Direct Bilirubin (0.0-0.5) mg/dL AST (15-37) IU/L ALT (14-63) IU/L Alkaline Phosphatase (46-116) U/L Total Protein (6.4-8.2) g/dL Albumin (3.4-5.0) g/dL Globulin (2.6-4.0) g/dL Albumin/Globulin Ratio (0.9-1.6) Result Diagrams: 02/14/21 05:37 02/14/21 05:37 Ravi Results Last 24 hrs: Microbiology 02/13/21 12:42 Aerobic Blood Culture - Preliminary Blood - Venous - Lab Draw NO GROWTH AFTER 1 DAY Anaerobic Blood Culture - Preliminary NO GROWTH AFTER 1 DAY 02/13/21 12:35 Aerobic Blood Culture - Preliminary Blood - Venous NO GROWTH AFTER 1 DAY Anaerobic Blood Culture - Preliminary NO GROWTH AFTER 1 DAY Sepsis Event Note - Evaluation Sepsis Screening Result: No Definite Risk - Focused Exam Vital Signs: Vital Signs Temp Resp BP BP Pulse Ox 02/14/21 13:00 16 100/58 L 115/70 91 L 02/14/21 12:00 36.1 C 16 103/58 L 113/69 93 L 02/14/21 11:00 13 121/78 113/66 92 L 02/14/21 10:20 84 L 02/14/21 10:00 22 H 121/78 119/66 93 L 02/14/21 09:00 18 111/74 96 02/14/21 08:00 36.0 C L 15 121/66 96 02/14/21 07:00 12 116/74 96 02/14/21 06:00 18 116/78 96 02/14/21 05:00 16 112/77 95 02/14/21 04:00 36.1 C 18 110/74 91 L - Problem List & Annotations (1) Acute respiratory failure with hypoxia and hypercapnia SNOMED Code(s): 804255730 Code(s): J96.01 - ACUTE RESPIRATORY FAILURE WITH HYPOXIA; J96.02 - ACUTE RESPIRATORY FAILURE WITH HYPERCAPNIA Status: Acute Current Visit: Yes (2) AMS (altered mental status) SNOMED Code(s): 953479024 Code(s): R41.82 - ALTERED MENTAL STATUS, UNSPECIFIED Status: Acute Current Visit: Yes (3) Pneumonia due to COVID-19 virus SNOMED Code(s): 677365660251866169 Code(s): U07.1 - COVID-19; J12.82 - PNEUMONIA DUE TO CORONAVIRUS DISEASE 2019 Status: Acute Current Visit: Yes - Problem List Review Problem List Initiated/Reviewed/Updated: Yes - My Orders Last 24 Hours: My Active Orders 02/13/21 16:46 BIPAP Adult [RT BiPAP/CPAP] [RC] ASDIRECTED 02/14/21 08:43 Arterial Line Insertion [OM.PC] Routine 02/14/21 08:57 Glucagon,Human Recombinant [GlucaGen] 1 mg IM ASDIRECTED PRN 02/14/21 Dinner Regular Diet [DIET] - Plan Plan:: Covid pneumonia, acute hypoxic and hypercapnic respiratory failure, patient has underlying obstructive sleep apnea and uses BiPAP at home -Remdesivir 200mg received in the ER. Remdesivir 100 mg daily starting 02/14/2021 x4 days. -Dexamethasone 6 mg daily. -Lovenox 40 mg daily. -Duo nebs. Combivent. -Acetaminophen 650. Zofran 4 mg. Protonix 40 mg daily. -Telemetry monitoring. Oxygen therapy. -Currently off BiPAP, continue oxygenation via Vapotherm Altered Mental Status: -Resolved
[2021-02-14] MEDS: REMDESIVIR 100 MG in Sodium Chloride 0.9% 100 ML IV SCH (15:56)
[2021-02-14] MEDS: Enoxaparin 40 MG/0.4 ML Syringe SUBCUT SCH (15:57)
[2021-02-14] MEDS: Dexamethasone 10 MG/ML SDV IVPUSH SCH (15:57)
[2021-02-15] MEDS: Albuterol/Ipratropium 4 GM Inhalation Spray INH SCH ×5 (00:18→23:06)
[2021-02-15 06:19] LABS: BLOOD UREA NITROGEN,BUN 21 mg/dL (7.0-18.0); CARBON DIOXIDE,CO2 32.3 mmol/L (21.0-32.0); CHLORIDE,CL 101 mmol/L (98-107); GLUCOSE RANDOM 121 mg/dL (74-106); POTASSIUM,K 5.1 mmol/L (3.5-5.1); SODIUM,NA 141 mmol/L (136-148)
[2021-02-15] MEDS: Pantoprazole 40 MG in Sodium Chloride 0.9% 10 ML IV SCH (08:41)
--- NOTE | 2021-02-15 09:39 | PN ---
THC Physician - Brief Progress [id number]/26/2021 14:55[facility] Sadaf Garcia, [place] - CARIN (ALICIA) - CARIN ICUISHAANYonatanALESHA GATES, COVID+Date of Service 02/14/2021 14: 55HPI/Events of Note eICU Progress Note60 y/o male admitted with acute hypoxemic respiratory failure requiring Bipap due to Covid pneumonia. Overnight, required increase to 20/8 due to worsened hypercap libra and mental status. Repeat ABG with morning with improvement in acidosis. Mental status improved o verall however per bedside RN, patient agitated and confused earlier today. Plan for haldol PRN. Curr ently sating well on 80%/60L HHF. Also treated for hyperkalemia, K 6.3 earlier. Video exam performed, currently sating 92%, RR 18, HR 81, BP 112/52. Lying comfortably in bed, no acute distress. Discusse d plan with bedside RN.eICU recommendations:- continue oxygen support, wean as tolerated- place on Bi pap nightly, continue 20/8- PRN haldol planned, consider nightly seroquel 50 mg PO- repeat K, obtain ECG if remains elevated- continue current Covid management with decadron, remdesivir, lovenox for VTE prophylaxis- consider baricitinib if worsening oxygen requirementsThank you for involving us in the care of this patient.Interventions Major-Electrolyte abnormality - evaluation and management, Hypoxem ia - evaluation and management, Respiratory failure - evaluation and management
--- NOTE | 2021-02-15 11:28 | PCM.EKG ---
#1 Interpretation EKG Date: 02/13/21 Time: 11:59 EKG Interpretation Comments: 106, sinus tach, nonspecific st/T changes
[2021-02-15] MEDS: REMDESIVIR 100 MG in Sodium Chloride 0.9% 100 ML IV SCH (15:38)
--- NOTE | 2021-02-15 15:38 | PCM.PN ---
<Elle Nesbitt - Last Filed: 02/15/21 15:33> - General Info Date of Service: 02/15/21 Admission Dx/Problem (Free Text): Admission Diagnosis/Problem Admission Diagnosis/Problem Viral pneumonia Subjective Update: 52-year-old male admitted for Covid pneumonia requiring BiPAP on admission for hypercapnia. Patient was altered on admission and unable to answer questions. This morning patient's mental status is improved and he is awake, alert and oriented x3. Patient is appreciative for the care provided during his admission. He is currently on Vapotherm 55 L, FiO2 70. Patient uses BiPAP at night. Patient has an arterial line placed. ABG done yesterday showed improvement of PCO2, 48. Patient states he has difficulty breathing and cough but has an appetite and has attempted to eat breakfast. Patient denies fever, chills, chest pain, headache, dizziness, abdominal pain, nausea, vomiting or diarrhea. - Review of Systems General: Reports: Weakness, Fatigue. Denies: Fever, Chills HEENT: Denies: Headaches Pulmonary: Reports: Shortness of Breath Cardiovascular: Denies: Chest Pain, Palpitations Gastrointestinal: Denies: Abdominal Pain, Constipation, Diarrhea, Nausea, Vomiting Genitourinary: Denies: Dysuria Musculoskeletal: Denies: Leg Pain Skin: Denies: Cyanosis Neurological: Denies: Confusion, Dizziness, Headache, Numbness, Paresthesia - Patient Data Vitals - Most Recent: Last Vital Signs Temp 97.6 F 02/15/21 08:00 Pulse 88 02/13/21 18:00 Resp 25 H 02/15/21 11:00 BP 132/79 02/15/21 11:00 Pulse Ox 88 L 02/15/21 11:00 Weight - Most Recent: 95.753 kg I&O - Last 24 Hours: Intake & Output 02/15/21 02/15/21 02/15/21 06:59 14:59 22:59 Intake Total 1750 Output Total 600 Balance 1150 Lab Results Last 24 Hours: Laboratory Results - last 24 hr 02/15/21 02/15/21 Range/Units 04:23 04:23 WBC 5.79 (4.0-11.0) K/uL RBC 5.52 (4.50-5.90) M/uL Hgb 16.6 (13.0-17.0) g/dL Hct 51.7 H (38.0-50.0) % MCV 93.7 (80.0-98.0) fL MCH 30.1 (27.0-32.0) pg MCHC 32.1 (31.0-37.0) g/dL RDW Std Deviation 55.8 (28.0-62.0) fl RDW Coeff of Lakshmi 16 H (11.0-15.0) % Plt Count 303 (150-400) K/uL MPV 10.50 (7.40-12.00) fL Add Manual Diff YES Neutrophils % (Manual) 63 (48.0-80.0) % Band Neutrophils % 4 % Lymphocytes % (Manual) 21 (16.0-40.0) % Monocytes % (Manual) 12 (0.0-15.0) % Nucleated RBC % 2.5 /100WBC Absolute Seg Neuts 3.6 (1.4-5.7) Band Neutrophils # 0.2 Lymphocytes # (Manual) 1.2 (0.6-2.4) Monocytes # (Manual) 0.7 (0.0-0.8) Nucleated RBCs # 0 K/uL Sodium 141 (136-148) mmol/L Potassium 5.1 (3.5-5.1) mmol/L Chloride 101 (98-107) mmol/L Carbon Dioxide 32.3 H (21.0-32.0) mmol/L BUN 21 H (7.0-18.0) mg/dL Creatinine 0.7 L (0.8-1.3) mg/dL Est Cr Clr Drug Dosing 126.25 mL/min Estimated GFR (MDRD) > 60.0 ml/min Glucose 121 H (74-106) mg/dL Calcium 7.2 L (8.5-10.1) mg/dL Total Bilirubin 0.7 (0.2-1.0) mg/dL AST 16 (15-37) IU/L ALT 22 (14-63) IU/L Alkaline Phosphatase 44 L (46-116) U/L Total Protein 6.0 L (6.4-8.2) g/dL Albumin 2.4 L (3.4-5.0) g/dL Globulin 3.6 (2.6-4.0) g/dL Albumin/Globulin Ratio 0.7 L (0.9-1.6) Ravi Results Last 24 Hours: Microbiology 02/13/21 12:42 Aerobic Blood Culture - Preliminary Blood - Venous - Lab Draw NO GROWTH AFTER 2 DAYS Anaerobic Blood Culture - Preliminary NO GROWTH AFTER 2 DAYS 02/13/21 12:35 Aerobic Blood Culture - Preliminary Blood - Venous NO GROWTH AFTER 2 DAYS Anaerobic Blood Culture - Preliminary NO GROWTH AFTER 2 DAYS Med Orders - Current: Current Medications Acetaminophen (Acetaminophen 325 Mg Tab) 650 mg PO Q4H PRN PRN Reason: Pain (Mild 1-3)/fever Albuterol/Ipratropium (Albuterol/Ipratropium 3.0-0.5 Mg/3 Ml Neb Soln) 3 ml NEB Q4HRRT PRN PRN Reason: Shortness Of Breath/wheezing Last Admin: 02/14/21 23:19 Dose: 3 ml Documented by: Albuterol/Ipratropium (Albuterol/Ipratropium 4 Gm Inhalation [place]) 0 gm INH QID [facility] Last Admin: 02/15/21 11:30 Dose: 1 puff Documented by: Dexamethasone (Dexamethasone 10 Mg/Ml Sdv) 6 mg IVPUSH Q24H [facility] Stop: 02/23/21 15:01 Last Admin: 02/14/21 15:57 Dose: 6 mg Documented by: Enoxaparin Sodium (Enoxaparin 40 Mg/0.4 Ml Syringe) 40 mg SUBCUT Q24H [facility] Last Admin: 02/14/21 15:57 Dose: 40 mg Documented by: Glucagon (Glucagon,Human Recombinant 1 Mg Vial) 1 mg IM ASDIRECTED PRN PRN Reason: Hypoglycemia Pantoprazole Sodium 40 mg/ (Sodium Chloride) 10 mls @ 300 mls/hr IV DAILY [facility] Last Admin: 02/15/21 08:41 Dose: 300 mls/hr Documented by: Remdesivir 100 mg/ Sodium (Chloride) 100 mls @ 100 mls/hr IV Q24H [facility] Stop: 02/17/21 16:53 Last Admin: 02/14/21 15:56 Dose: 100 mls/hr Documented by: Ondansetron HCl (Ondansetron 4 Mg/2 Ml Sdv) 4 mg IVPUSH Q4H PRN PRN Reason: Nausea/Vomiting Sodium Chloride (Sodium Chloride 0.9% 10 Ml Syringe) 10 ml FLUSH ASDIRECTED PRN PRN Reason: Keep Vein Open Last Admin: 02/13/21 12:04 Dose: 10 ml Documented by: Sodium Chloride (Sodium Chloride 0.9% 2.5 Ml Syringe) 2.5 ml FLUSH ASDIRECTED PRN PRN Reason: Keep Vein Open Last Admin: 02/13/21 12:08 Dose: 2.5 ml Documented by: Discontinued Medications Dexamethasone (Dexamethasone 10 Mg/Ml Sdv) 6 mg IVPUSH ONETIME ONE Stop: 02/13/21 13:44 Last Admin: 02/13/21 13:53 Dose: 6 mg Documented by: Dextrose/Water (50% Dextrose In Water 50 Ml Syringe) 50 ml IVPUSH ONETIME ONE Stop: 02/14/21 08:58 Last Admin: 02/14/21 09:33 Dose: 50 ml Documented by: Remdesivir 200 mg/ Sodium (Chloride) 250 mls @ 250 mls/hr IV ONETIME ONE Stop: 02/13/21 13:44 Last Admin: 02/13/21 14:32 Dose: 250 mls/hr Documented by: Remdesivir 100 mg/ Sodium (Chloride) 100 mls @ 100 mls/hr IV Q24H [facility] Stop: 02/17/21 15:59 Last Admin: 02/14/21 17:34 Dose: Not Given Documented by: Calcium Gluconate 1 gm/ Sodium (Chloride) 110 mls @ 660 mls/hr IV ONETIME ONE Stop: 02/14/21 09:24 Last Admin: 02/14/21 09:49 Dose: 660 mls/hr Documented by: Insulin Human Regular (Insulin Regular, Human 100 Units/Ml 10 Ml Vial) 10 unit IVPUSH ONETIME ONE; Protocol Stop: 02/14/21 08:58 Last Admin: 02/14/21 09:34 Dose: 10 units Documented by: - Exam Quality Assessment: Supplemental Oxygen Urinary Catheter Total Time: 1Days 3Hours General: Alert, Oriented, Cooperative, No Acute Distress, Lethargic HEENT: Pupils Equal, Pupils Reactive Neck: Supple, Trachea Midline Lungs: Decreased Breath Sounds, Crackles Cardiovascular: Regular Rate, Regular Rhythm GI/Abdominal Exam: Normal Bowel Sounds, Soft, Non-Tender Back Exam: Normal Inspection. No: CVA Tenderness (L), CVA Tenderness (R) Extremities: Normal Inspection, Normal Range of Motion, Non-Tender, No Pedal Edema Peripheral Pulses: 2+: Dorsalis Pedis (L), Dorsalis Pedis (R) Skin: Warm, Dry, Intact Neurological: No New Focal Deficit - Patient Data Lab Results Last 24 hrs: Laboratory Results - last 24 hr 02/15/21 02/15/21 Range/Units 04:23 04:23 WBC 5.79 (4.0-11.0) K/uL RBC 5.52 (4.50-5.90) M/uL Hgb 16.6 (13.0-17.0) g/dL Hct 51.7 H (38.0-50.0) % MCV 93.7 (80.0-98.0) fL MCH 30.1 (27.0-32.0) pg MCHC 32.1 (31.0-37.0) g/dL RDW Std Deviation 55.8 (28.0-62.0) fl RDW Coeff of Lakshmi 16 H (11.0-15.0) % Plt Count 303 (150-400) K/uL MPV 10.50 (7.40-12.00) fL Add Manual Diff YES Neutrophils % (Manual) 63 (48.0-80.0) % Band Neutrophils % 4 % Lymphocytes % (Manual) 21 (16.0-40.0) % Monocytes % (Manual) 12 (0.0-15.0) % Nucleated RBC % 2.5 /100WBC Absolute Seg Neuts 3.6 (1.4-5.7) Band Neutrophils # 0.2 Lymphocytes # (Manual) 1.2 (0.6-2.4) Monocytes # (Manual) 0.7 (0.0-0.8) Nucleated RBCs # 0 K/uL Sodium 141 (136-148) mmol/L Potassium 5.1 (3.5-5.1) mmol/L Chloride 101 (98-107) mmol/L Carbon Dioxide 32.3 H (21.0-32.0) mmol/L BUN 21 H (7.0-18.0) mg/dL Creatinine 0.7 L (0.8-1.3) mg/dL Est Cr Clr Drug Dosing 126.25 mL/min Estimated GFR (MDRD) > 60.0 ml/min Glucose 121 H (74-106) mg/dL Calcium 7.2 L (8.5-10.1) mg/dL Total Bilirubin 0.7 (0.2-1.0) mg/dL AST 16 (15-37) IU/L ALT 22 (14-63) IU/L Alkaline Phosphatase 44 L (46-116) U/L Total Protein 6.0 L (6.4-8.2) g/dL Albumin 2.4 L (3.4-5.0) g/dL Globulin 3.6 (2.6-4.0) g/dL Albumin/Globulin Ratio 0.7 L (0.9-1.6) Result Diagrams: 02/15/21 04:23 02/15/21 04:23 Ravi Results Last 24 hrs: Microbiology 02/13/21 12:42 Aerobic Blood Culture - Preliminary Blood - Venous - Lab Draw NO GROWTH AFTER 2 DAYS Anaerobic Blood Culture - Preliminary NO GROWTH AFTER 2 DAYS 02/13/21 12:35 Aerobic Blood Culture - Preliminary Blood - Venous NO GROWTH AFTER 2 DAYS Anaerobic Blood Culture - Preliminary NO GROWTH AFTER 2 DAYS Sepsis Event Note - Evaluation Sepsis Screening Result: No Definite Risk - Focused Exam Vital Signs: Vital Signs Temp Resp BP BP Pulse Ox 02/15/21 11:00 25 H 132/79 107/86 88 L 02/15/21 10:00 19 126/69 110/70 90 L 02/15/21 09:00 17 132/76 115/73 88 L 02/15/21 08:00 97.6 F 14 116/65 114/66 92 L 02/15/21 07:00 25 H 104/65 104/65 90 L 02/15/21 06:00 21 H 127/84 95 02/15/21 05:00 97.6 F 17 135/68 92 L 02/15/21 04:00 23 H 121/67 90 L - Problem List & Annotations (1) Pneumonia due to COVID-19 virus SNOMED Code(s): 002584203094260843 Code(s): U07.1 - COVID-19; J12.82 - PNEUMONIA DUE TO CORONAVIRUS DISEASE 2019 Status: Acute (2) AMS (altered mental status) SNOMED Code(s): 558690756 Code(s): R41.82 - ALTERED MENTAL STATUS, UNSPECIFIED Status: Acute - Problem List Review Problem List Initiated/Reviewed/Updated: Yes - My Orders Last 24 Hours: My Active Orders 02/14/21 15:00 dexAMETHasone [Decadron] 6 mg IVPUSH Q24H 02/14/21 15:54 Remdesivir 100 mg Sodium Chloride 0.9% [Normal Saline AdvBag] 100 ml IV Q24H 02/16/21 05:11 CBC WITH AUTO DIFF [HEME] DAILY 02/16/21 15:30 COMPREHENSIVE METABOLIC PN,CMP [CHEM] DAILY 02/17/21 05:11 CBC WITH AUTO DIFF [HEME] DAILY 02/17/21 15:30 COMPREHENSIVE METABOLIC PN,CMP [CHEM] DAILY 02/18/21 05:11 CBC WITH AUTO DIFF [HEME] DAILY 02/18/21 15:30 COMPREHENSIVE METABOLIC PN,CMP [CHEM] DAILY 02/19/21 05:11 CBC WITH AUTO DIFF [HEME] DAILY 02/19/21 15:30 COMPREHENSIVE METABOLIC PN,CMP [CHEM] DAILY 02/20/21 05:11 CBC WITH AUTO DIFF [HEME] DAILY 02/20/21 15:30 COMPREHENSIVE METABOLIC PN,CMP [CHEM] DAILY - Plan Plan:: Covid pneumonia, acute hypoxic and hypercapnic respiratory failure: -Altered mental status resolved. -Patient has history of obstructive sleep apnea and uses CPAP at night. BiPAP at night in the hospital. -Remdesivir 200mg received in the ER. Remdesivir 100 mg daily starting 02/14/2021 x4 days. -Dexamethasone 6 mg daily. -Lovenox 40 mg daily. -Duo nebs. Combivent. -Acetaminophen 650. Zofran 4 mg. Protonix 40 mg daily. -Telemetry monitoring. Oxygen therapy. -Currently off BiPAP, continue oxygenation via Vapotherm <Diane Gomez - Last Filed: 02/20/21 13:19> - General Info Subjective Update: I have seen and evaluated the patient and agree with the residents note unless specified in my note - Patient Data Vitals - Most Recent: Last Vital Signs Temp 36.8 C 02/19/21 11:42 Pulse 97 02/19/21 11:42 Resp 16 02/19/21 08:00 BP 117/71 02/19/21 11:42 Pulse Ox 93 L 02/19/21 11:42 Med Orders - Current: Current Medications Discontinued Medications Acetaminophen (Acetaminophen 325 Mg Tab) 650 mg PO Q4H PRN PRN Reason: Pain (Mild 1-3)/fever Last Admin: 02/19/21 00:14 Dose: 650 mg Documented by: Albuterol/Ipratropium (Albuterol/Ipratropium 3.0-0.5 Mg/3 Ml Neb Soln) 3 ml NEB Q4HRRT PRN PRN Reason: Shortness Of Breath/wheezing Last Admin: 02/14/21 23:19 Dose: 3 ml Documented by: Albuterol/Ipratropium (Albuterol/Ipratropium 4 Gm Inhalation [place]) 0 gm INH QID [facility] Last Admin: 02/19/21 11:41 Dose: 1 puff Documented by: Baricitinib (Baricitinib 2 Mg Tab) 4 mg PO DAILY [facility] Last Admin: 02/19/21 08:48 Dose: 4 mg Documented by: Dexamethasone (Dexamethasone 10 Mg/Ml Sdv) 6 mg IVPUSH ONETIME ONE Stop: 02/13/21 13:44 Last Admin: 02/13/21 13:53 Dose: 6 mg Documented by: Dexamethasone (Dexamethasone 10 Mg/Ml Sdv) 6 mg IVPUSH Q24H [facility] Stop: 02/23/21 15:01 Last Admin: 02/18/21 15:35 Dose: 6 mg Documented by: Dextrose/Water (50% Dextrose In Water 50 Ml Syringe) 50 ml IVPUSH ONETIME ONE Stop: 02/14/21 08:58 Last Admin: 02/14/21 09:33 Dose: 50 ml Documented by: Enoxaparin Sodium (Enoxaparin 40 Mg/0.4 Ml Syringe) 40 mg SUBCUT Q24H [facility] Last Admin: 02/18/21 15:35 Dose: 40 mg Documented by: Glucagon (Glucagon,Human Recombinant 1 Mg Vial) 1 mg IM ASDIRECTED PRN PRN Reason: Hypoglycemia Remdesivir 200 mg/ Sodium (Chloride) 250 mls @ 250 mls/hr IV ONETIME ONE Stop: 02/13/21 13:44 Last Admin: 02/13/21 14:32 Dose: 250 mls/hr Documented by: Remdesivir 100 mg/ Sodium (Chloride) 100 mls @ 100 mls/hr IV Q24H [facility] Stop: 02/17/21 15:59 Last Admin: 02/14/21 17:34 Dose: Not Given Documented by: Pantoprazole Sodium 40 mg/ (Sodium Chloride) 10 mls @ 300 mls/hr IV DAILY [facility] Last Admin: 02/19/21 08:49 Dose: 300 mls/hr Documented by: Calcium Gluconate 1 gm/ Sodium (Chloride) 110 mls @ 660 mls/hr IV ONETIME ONE Stop: 02/14/21 09:24 Last Admin: 02/14/21 09:49 Dose: 660 mls/hr Documented by: Remdesivir 100 mg/ Sodium (Chloride) 100 mls @ 100 mls/hr IV Q24H [facility] Stop: 02/17/21 16:53 Last Admin: 02/17/21 15:37 Dose: 100 mls/hr Documented by: Sodium Chloride (Normal Saline) Confirm Administered Dose 20 mls @ as directed .ROUTE .STK-MED ONE Stop: 02/17/21 08:33 Last Admin: 02/17/21 09:00 Dose: Not Given Documented by: Insulin Human Regular (Insulin Regular, Human 100 Units/Ml 10 Ml Vial) 10 unit IVPUSH ONETIME ONE; Protocol Stop: 02/14/21 08:58 Last Admin: 02/14/21 09:34 Dose: 10 units Documented by: Ondansetron HCl (Ondansetron 4 Mg/2 Ml Sdv) 4 mg IVPUSH Q4H PRN PRN Reason: Nausea/Vomiting Sodium Chloride (Sodium Chloride 0.9% 10 Ml Syringe) 10 ml FLUSH ASDIRECTED PRN PRN Reason: Keep Vein Open Last Admin: 02/13/21 12:04 Dose: 10 ml Documented by: Sodium Chloride (Sodium Chloride 0.9% 2.5 Ml Syringe) 2.5 ml FLUSH ASDIRECTED PRN PRN Reason: Keep Vein Open Last Admin: 02/13/21 12:08 Dose: 2.5 ml Documented by: - Patient Data Result Diagrams: 02/19/21 06:49 02/19/21 06:49 - Problem List & Annotations (1) Acute respiratory failure with hypoxia and hypercapnia SNOMED Code(s): 432458163 Code(s): J96.01 - ACUTE RESPIRATORY FAILURE WITH HYPOXIA; J96.02 - ACUTE RESPIRATORY FAILURE WITH HYPERCAPNIA Status: Acute (2) AMS (altered mental status) SNOMED Code(s): 671055398 Code(s): R41.82 - ALTERED MENTAL STATUS, UNSPECIFIED Status: Acute (3) Pneumonia due to COVID-19 virus SNOMED Code(s): 447624558563265272 Code(s): U07.1 - COVID-19; J12.82 - PNEUMONIA DUE TO CORONAVIRUS DISEASE 2019 Status: Acute
[2021-02-15] MEDS: Enoxaparin 40 MG/0.4 ML Syringe SUBCUT SCH (15:42)
[2021-02-15] MEDS: Dexamethasone 10 MG/ML SDV IVPUSH SCH (15:42)
[2021-02-16] MEDS: Albuterol/Ipratropium 4 GM Inhalation Spray INH SCH ×4 (06:05→23:24)
[2021-02-16 07:52] LABS: BLOOD UREA NITROGEN,BUN 19 mg/dL (7.0-18.0); CARBON DIOXIDE,CO2 28.6 mmol/L (21.0-32.0); CHLORIDE,CL 98 mmol/L (98-107); GLUCOSE RANDOM 98 mg/dL (74-106); POTASSIUM,K 5.2 mmol/L (3.5-5.1); SODIUM,NA 135 mmol/L (136-148)
[2021-02-16] MEDS: Pantoprazole 40 MG in Sodium Chloride 0.9% 10 ML IV SCH (08:03)
[2021-02-16] MEDS: Enoxaparin 40 MG/0.4 ML Syringe SUBCUT SCH (14:30)
[2021-02-16] MEDS: Dexamethasone 10 MG/ML SDV IVPUSH SCH (14:33)
[2021-02-16] MEDS: REMDESIVIR 100 MG in Sodium Chloride 0.9% 100 ML IV SCH (15:41)
--- NOTE | 2021-02-16 18:04 | PN ---
THC Physician - Brief Progress FndmARLOHIRES08/28/2021 17:49[facility] Sadaf Garcia, [place] - [facility] ([facility]) - [facility] ICUALESHA DEMPSEYNora, COVID+Date of Service 02/16/2021 17: 49HPI/Events of Note eICU DAILY PROGRESS NOTE60 yo M with COVID19 PNA. He was confused on admission, likely d/t CO2 narcosis as pH at that time was 7.22 with PCO2 87. He was placed on BiPAP and pH, PCO2 , and mentation all improved. He has since been weaned to heated HFNC and uses BiPAP QHS. He has EDD. Vitals and labs reviewed. On exam, pt is resting in bed, awake and alert, oriented to conversation w [facility] nurse. He has moderately increased work of breathing at rest. He is on heated HFNC with spo2 95%. NSR with normal HR on exam. ASSESSMENT:Acute hypoxic hypercapnic respiratory failureMultifocal commu nity acquired pneumonia d/t [id number] encephalopathy d/t CO2 narcosisOSAHyperkalemiaPLAN:O2 via heated HFNC, wean as toleratedMaintain spo2 >90% and po2 >60 mmHgDroplet isolation per protocolR ecommend scheduled proning throughout the dayRecommend diuresis and restrictive fluid management stra tegy as toleratedDexamethasoneRemdesivirBaricitinibMentation is back to baseline s/p BiPAPBiPAP QHS a nd PRN napsRecommend 40 mg IV Anshul Bhandari in AMTelemetryInterventions Major-Hypoxemia - evalua tion and management, Infection - evaluation and management, Respiratory failure - evaluation and rashawn gement
--- NOTE | 2021-02-16 20:02 | PCM.PN ---
<Elle Nesbitt - Last Filed: 02/16/21 19:59> - General Info Date of Service: 02/16/21 Admission Dx/Problem (Free Text): Admission Diagnosis/Problem Admission Diagnosis/Problem Viral pneumonia Subjective Update: 52-year-old male admitted for Covid pneumonia requiring BiPAP on admission for hypercapnia. Patient's mental status continues to improve. He is alert and oriented x3. He is currently on Vapotherm 50 L, FiO2 60. Patient remains on Vapotherm last night. We will remove arterial line today. Discussed baricitinib therapy and patient consented to receive medication. Patient denies fever, chills, chest pain, headache, dizziness, abdominal pain, nausea, vomiting or diarrhea. - Review of Systems General: Reports: Weakness, Fatigue. Denies: Fever, Chills Pulmonary: Reports: Shortness of Breath. Denies: Pleuritic Chest Pain Cardiovascular: Denies: Chest Pain, Palpitations Gastrointestinal: Denies: Abdominal Pain, Constipation, Diarrhea, Nausea, Vomiting Genitourinary: Denies: Dysuria Musculoskeletal: Denies: Leg Pain Skin: Denies: Cyanosis Neurological: Denies: Confusion, Dizziness, Headache, Numbness, Paresthesia - Patient Data Vitals - Most Recent: Last Vital Signs Temp 96.8 F L 02/16/21 16:00 Pulse 88 02/13/21 18:00 Resp 14 02/16/21 19:17 BP 126/88 02/16/21 19:00 Pulse Ox 93 L 02/16/21 19:17 Weight - Most Recent: 95.753 kg I&O - Last 24 Hours: Intake & Output 02/16/21 02/16/21 02/16/21 06:59 14:59 22:59 Intake Total 450 1220 Output Total 1000 800 Balance -550 420 Lab Results Last 24 Hours: Laboratory Results - last 24 hr 02/16/21 02/16/21 Range/Units 05:29 05:29 WBC 6.15 (4.0-11.0) K/uL RBC 5.78 (4.50-5.90) M/uL Hgb 17.2 H (13.0-17.0) g/dL Hct 52.6 H (38.0-50.0) % MCV 91.0 (80.0-98.0) fL MCH 29.8 (27.0-32.0) pg MCHC 32.7 (31.0-37.0) g/dL RDW Std Deviation 52.2 (28.0-62.0) fl RDW Coeff of Lakshmi 16 H (11.0-15.0) % Plt Count 366 (150-400) K/uL MPV 10.70 (7.40-12.00) fL Add Manual Diff YES Neutrophils % (Manual) 51 (48.0-80.0) % Band Neutrophils % 2 % Lymphocytes % (Manual) 39 (16.0-40.0) % Monocytes % (Manual) 8 (0.0-15.0) % Nucleated RBC % 0.0 /100WBC Absolute Seg Neuts 3.1 (1.4-5.7) Band Neutrophils # 0.1 Lymphocytes # (Manual) 2.4 (0.6-2.4) Monocytes # (Manual) 0.5 (0.0-0.8) Nucleated RBCs # 0 K/uL Reactive Lymphocytes MODERATE Sodium 135 L (136-148) mmol/L Potassium 5.2 H (3.5-5.1) mmol/L Chloride 98 (98-107) mmol/L Carbon Dioxide 28.6 (21.0-32.0) mmol/L BUN 19 H (7.0-18.0) mg/dL Creatinine 0.6 L (0.8-1.3) mg/dL Est Cr Clr Drug Dosing 147.30 mL/min Estimated GFR (MDRD) > 60.0 ml/min Glucose 98 (74-106) mg/dL Calcium 7.7 L (8.5-10.1) mg/dL Total Bilirubin 1.0 (0.2-1.0) mg/dL AST 22 (15-37) IU/L ALT 27 (14-63) IU/L Alkaline Phosphatase 45 L (46-116) U/L Total Protein 6.5 (6.4-8.2) g/dL Albumin 2.6 L (3.4-5.0) g/dL Globulin 3.9 (2.6-4.0) g/dL Albumin/Globulin Ratio 0.7 L (0.9-1.6) Ravi Results Last 24 Hours: Microbiology 02/13/21 12:42 Aerobic Blood Culture - Preliminary Blood - Venous - Lab Draw NO GROWTH AFTER 3 DAYS Anaerobic Blood Culture - Preliminary NO GROWTH AFTER 3 DAYS 02/13/21 12:35 Aerobic Blood Culture - Preliminary Blood - Venous NO GROWTH AFTER 3 DAYS Anaerobic Blood Culture - Preliminary NO GROWTH AFTER 3 DAYS Med Orders - Current: Current Medications Acetaminophen (Acetaminophen 325 Mg Tab) 650 mg PO Q4H PRN PRN Reason: Pain (Mild 1-3)/fever Albuterol/Ipratropium (Albuterol/Ipratropium 3.0-0.5 Mg/3 Ml Neb Soln) 3 ml NEB Q4HRRT PRN PRN Reason: Shortness Of Breath/wheezing Last Admin: 02/14/21 23:19 Dose: 3 ml Documented by: Albuterol/Ipratropium (Albuterol/Ipratropium 4 Gm Inhalation Cushing) 0 gm INH QID [facility] Last Admin: 02/16/21 17:28 Dose: 1 puff Documented by: Baricitinib (Baricitinib 2 Mg Tab) 4 mg PO DAILY [facility] Last Admin: 02/16/21 10:06 Dose: 4 mg Documented by: Dexamethasone (Dexamethasone 10 Mg/Ml Sdv) 6 mg IVPUSH Q24H [facility] Stop: 02/23/21 15:01 Last Admin: 02/16/21 14:33 Dose: 6 mg Documented by: Enoxaparin Sodium (Enoxaparin 40 Mg/0.4 Ml Syringe) 40 mg SUBCUT Q24H [facility] Last Admin: 02/16/21 14:30 Dose: 40 mg Documented by: Glucagon (Glucagon,Human Recombinant 1 Mg Vial) 1 mg IM ASDIRECTED PRN PRN Reason: Hypoglycemia Pantoprazole Sodium 40 mg/ (Sodium Chloride) 10 mls @ 300 mls/hr IV DAILY [facility] Last Admin: 02/16/21 08:03 Dose: 300 mls/hr Documented by: Remdesivir 100 mg/ Sodium (Chloride) 100 mls @ 100 mls/hr IV Q24H [facility] Stop: 02/17/21 16:53 Last Admin: 02/16/21 15:41 Dose: 100 mls/hr Documented by: Ondansetron HCl (Ondansetron 4 Mg/2 Ml Sdv) 4 mg IVPUSH Q4H PRN PRN Reason: Nausea/Vomiting Sodium Chloride (Sodium Chloride 0.9% 10 Ml Syringe) 10 ml FLUSH ASDIRECTED PRN PRN Reason: Keep Vein Open Last Admin: 02/13/21 12:04 Dose: 10 ml Documented by: Sodium Chloride (Sodium Chloride 0.9% 2.5 Ml Syringe) 2.5 ml FLUSH ASDIRECTED PRN PRN Reason: Keep Vein Open Last Admin: 02/13/21 12:08 Dose: 2.5 ml Documented by: Discontinued Medications Dexamethasone (Dexamethasone 10 Mg/Ml Sdv) 6 mg IVPUSH ONETIME ONE Stop: 02/13/21 13:44 Last Admin: 02/13/21 13:53 Dose: 6 mg Documented by: Dextrose/Water (50% Dextrose In Water 50 Ml Syringe) 50 ml IVPUSH ONETIME ONE Stop: 02/14/21 08:58 Last Admin: 02/14/21 09:33 Dose: 50 ml Documented by: Remdesivir 200 mg/ Sodium (Chloride) 250 mls @ 250 mls/hr IV ONETIME ONE Stop: 02/13/21 13:44 Last Admin: 02/13/21 14:32 Dose: 250 mls/hr Documented by: Remdesivir 100 mg/ Sodium (Chloride) 100 mls @ 100 mls/hr IV Q24H [facility] Stop: 02/17/21 15:59 Last Admin: 02/14/21 17:34 Dose: Not Given Documented by: Calcium Gluconate 1 gm/ Sodium (Chloride) 110 mls @ 660 mls/hr IV ONETIME ONE Stop: 02/14/21 09:24 Last Admin: 02/14/21 09:49 Dose: 660 mls/hr Documented by: Insulin Human Regular (Insulin Regular, Human 100 Units/Ml 10 Ml Vial) 10 unit IVPUSH ONETIME ONE; Protocol Stop: 02/14/21 08:58 Last Admin: 02/14/21 09:34 Dose: 10 units Documented by: - Exam Quality Assessment: Supplemental Oxygen Urinary Catheter Total Time: 2Days 16Hours General: Alert, Oriented, No Acute Distress HEENT: Pupils Equal, Pupils Reactive Neck: Supple, Trachea Midline Lungs: Decreased Breath Sounds, Rales Cardiovascular: Regular Rate, Regular Rhythm GI/Abdominal Exam: Normal Bowel Sounds, Soft, Non-Tender Back Exam: Normal Inspection Extremities: Normal Inspection, Non-Tender, No Pedal Edema Peripheral Pulses: 2+: Dorsalis Pedis (L), Dorsalis Pedis (R) Skin: Warm, Dry, Intact Neurological: No New Focal Deficit - Patient Data Lab Results Last 24 hrs: Laboratory Results - last 24 hr 02/16/21 02/16/21 Range/Units 05:29 05:29 WBC 6.15 (4.0-11.0) K/uL RBC 5.78 (4.50-5.90) M/uL Hgb 17.2 H (13.0-17.0) g/dL Hct 52.6 H (38.0-50.0) % MCV 91.0 (80.0-98.0) fL MCH 29.8 (27.0-32.0) pg MCHC 32.7 (31.0-37.0) g/dL RDW Std Deviation 52.2 (28.0-62.0) fl RDW Coeff of Lakshmi 16 H (11.0-15.0) % Plt Count 366 (150-400) K/uL MPV 10.70 (7.40-12.00) fL Add Manual Diff YES Neutrophils % (Manual) 51 (48.0-80.0) % Band Neutrophils % 2 % Lymphocytes % (Manual) 39 (16.0-40.0) % Monocytes % (Manual) 8 (0.0-15.0) % Nucleated RBC % 0.0 /100WBC Absolute Seg Neuts 3.1 (1.4-5.7) Band Neutrophils # 0.1 Lymphocytes # (Manual) 2.4 (0.6-2.4) Monocytes # (Manual) 0.5 (0.0-0.8) Nucleated RBCs # 0 K/uL Reactive Lymphocytes MODERATE Sodium 135 L (136-148) mmol/L Potassium 5.2 H (3.5-5.1) mmol/L Chloride 98 (98-107) mmol/L Carbon Dioxide 28.6 (21.0-32.0) mmol/L BUN 19 H (7.0-18.0) mg/dL Creatinine 0.6 L (0.8-1.3) mg/dL Est Cr Clr Drug Dosing 147.30 mL/min Estimated GFR (MDRD) > 60.0 ml/min Glucose 98 (74-106) mg/dL Calcium 7.7 L (8.5-10.1) mg/dL Total Bilirubin 1.0 (0.2-1.0) mg/dL AST 22 (15-37) IU/L ALT 27 (14-63) IU/L Alkaline Phosphatase 45 L (46-116) U/L Total Protein 6.5 (6.4-8.2) g/dL Albumin 2.6 L (3.4-5.0) g/dL Globulin 3.9 (2.6-4.0) g/dL Albumin/Globulin Ratio 0.7 L (0.9-1.6) Result Diagrams: 02/16/21 05:29 02/16/21 05:29 Ravi Results Last 24 hrs: Microbiology 02/13/21 12:42 Aerobic Blood Culture - Preliminary Blood - Venous - Lab Draw NO GROWTH AFTER 3 DAYS Anaerobic Blood Culture - Preliminary NO GROWTH AFTER 3 DAYS 02/13/21 12:35 Aerobic Blood Culture - Preliminary Blood - Venous NO GROWTH AFTER 3 DAYS Anaerobic Blood Culture - Preliminary NO GROWTH AFTER 3 DAYS Sepsis Event Note - Evaluation Sepsis Screening Result: Severe Sepsis Risk - Focused Exam Vital Signs: Vital Signs Temp Resp BP BP Pulse Ox 02/16/21 19:17 14 93 L 02/16/21 19:00 126/88 02/16/21 18:00 16 95 02/16/21 17:57 95 02/16/21 17:00 25 H 138/103 H 93 L 02/16/21 16:00 96.8 F L 21 H 134/92 H 95 02/16/21 15:00 20 128/86 94 L 02/16/21 14:00 20 129/84 95 02/16/21 13:58 19 95 02/16/21 13:00 20 130/77 96 02/16/21 12:00 98.1 F 25 H 127/79 93 L 02/16/21 11:48 18 96 02/16/21 11:00 22 H 128/72 143/70 H 93 L 02/16/21 10:00 18 124/76 140/78 95 02/16/21 09:00 19 135/85 139/87 93 L 02/16/21 08:00 98.4 F 18 139/76 142/70 H 94 L - Problem List & Annotations (1) Pneumonia due to COVID-19 virus SNOMED Code(s): 159323666639481503 Code(s): U07.1 - COVID-19; J12.82 - PNEUMONIA DUE TO CORONAVIRUS DISEASE 2019 Status: Acute (2) AMS (altered mental status) SNOMED Code(s): 030558193 Code(s): R41.82 - ALTERED MENTAL STATUS, UNSPECIFIED Status: Acute - Problem List Review Problem List Initiated/Reviewed/Updated: Yes - My Orders Last 24 Hours: My Active Orders 02/16/21 09:30 Baricitinib [Olumiant] 4 mg PO DAILY 02/16/21 12:15 Arterial Line Discontinue [OM.PC] Routine 02/17/21 05:11 CBC WITH AUTO DIFF [HEME] DAILY 02/17/21 15:30 COMPREHENSIVE METABOLIC PN,CMP [CHEM] DAILY 02/18/21 05:11 CBC WITH AUTO DIFF [HEME] DAILY 02/18/21 15:30 COMPREHENSIVE METABOLIC PN,CMP [CHEM] DAILY 02/19/21 05:11 CBC WITH AUTO DIFF [HEME] DAILY 02/19/21 15:30 COMPREHENSIVE METABOLIC PN,CMP [CHEM] DAILY 02/20/21 05:11 CBC WITH AUTO DIFF [HEME] DAILY 02/20/21 15:30 COMPREHENSIVE METABOLIC PN,CMP [CHEM] DAILY - Plan Plan:: Covid pneumonia, acute hypoxic and hypercapnic respiratory failure: -Baricitinib started today. -Remdesivir 100 mg daily starting 02/14/2021 x4 days. -Dexamethasone 6 mg daily. -Lovenox 40 mg daily. -Duo nebs. Combivent. -Acetaminophen 650. Zofran 4 mg. Protonix 40 mg daily. -Telemetry monitoring. Oxygen therapy. -Currently off BiPAP, continue oxygenation via Vapotherm <Diane Gomez - Last Filed: 02/20/21 13:12> - Patient Data Vitals - Most Recent: Last Vital Signs Temp 36.8 C 02/19/21 11:42 Pulse 97 02/19/21 11:42 Resp 16 02/19/21 08:00 BP 117/71 02/19/21 11:42 Pulse Ox 93 L 02/19/21 11:42 Med Orders - Current: Current Medications Discontinued Medications Acetaminophen (Acetaminophen 325 Mg Tab) 650 mg PO Q4H PRN PRN Reason: Pain (Mild 1-3)/fever Last Admin: 02/19/21 00:14 Dose: 650 mg Documented by: Albuterol/Ipratropium (Albuterol/Ipratropium 3.0-0.5 Mg/3 Ml Neb Soln) 3 ml NEB Q4HRRT PRN PRN Reason: Shortness Of Breath/wheezing Last Admin: 02/14/21 23:19 Dose: 3 ml Documented by: Albuterol/Ipratropium (Albuterol/Ipratropium 4 Gm Inhalation [place]ushing) 0 gm INH QID [facility] Last Admin: 02/19/21 11:41 Dose: 1 puff Documented by: Baricitinib (Baricitinib 2 Mg Tab) 4 mg PO DAILY [facility] Last Admin: 02/19/21 08:48 Dose: 4 mg Documented by: Dexamethasone (Dexamethasone 10 Mg/Ml Sdv) 6 mg IVPUSH ONETIME ONE Stop: 02/13/21 13:44 Last Admin: 02/13/21 13:53 Dose: 6 mg Documented by: Dexamethasone (Dexamethasone 10 Mg/Ml Sdv) 6 mg IVPUSH Q24H [facility] Stop: 02/23/21 15:01 Last Admin: 02/18/21 15:35 Dose: 6 mg Documented by: Dextrose/Water (50% Dextrose In Water 50 Ml Syringe) 50 ml IVPUSH ONETIME ONE Stop: 02/14/21 08:58 Last Admin: 02/14/21 09:33 Dose: 50 ml Documented by: Enoxaparin Sodium (Enoxaparin 40 Mg/0.4 Ml Syringe) 40 mg SUBCUT Q24H [facility] Last Admin: 02/18/21 15:35 Dose: 40 mg Documented by: Glucagon (Glucagon,Human Recombinant 1 Mg Vial) 1 mg IM ASDIRECTED PRN PRN Reason: Hypoglycemia Remdesivir 200 mg/ Sodium (Chloride) 250 mls @ 250 mls/hr IV ONETIME ONE Stop: 02/13/21 13:44 Last Admin: 02/13/21 14:32 Dose: 250 mls/hr Documented by: Remdesivir 100 mg/ Sodium (Chloride) 100 mls @ 100 mls/hr IV Q24H [facility] Stop: 02/17/21 15:59 Last Admin: 02/14/21 17:34 Dose: Not Given Documented by: Pantoprazole Sodium 40 mg/ (Sodium Chloride) 10 mls @ 300 mls/hr IV DAILY [facility] Last Admin: 02/19/21 08:49 Dose: 300 mls/hr Documented by: Calcium Gluconate 1 gm/ Sodium (Chloride) 110 mls @ 660 mls/hr IV ONETIME ONE Stop: 02/14/21 09:24 Last Admin: 02/14/21 09:49 Dose: 660 mls/hr Documented by: Remdesivir 100 mg/ Sodium (Chloride) 100 mls @ 100 mls/hr IV Q24H [facility] Stop: 02/17/21 16:53 Last Admin: 02/17/21 15:37 Dose: 100 mls/hr Documented by: Sodium Chloride (Normal Saline) Confirm Administered Dose 20 mls @ as directed .ROUTE .STK-MED ONE Stop: 02/17/21 08:33 Last Admin: 02/17/21 09:00 Dose: Not Given Documented by: Insulin Human Regular (Insulin Regular, Human 100 Units/Ml 10 Ml Vial) 10 unit IVPUSH ONETIME ONE; Protocol Stop: 02/14/21 08:58 Last Admin: 02/14/21 09:34 Dose: 10 units Documented by: Ondansetron HCl (Ondansetron 4 Mg/2 Ml Sdv) 4 mg IVPUSH Q4H PRN PRN Reason: Nausea/Vomiting Sodium Chloride (Sodium Chloride 0.9% 10 Ml Syringe) 10 ml FLUSH ASDIRECTED PRN PRN Reason: Keep Vein Open Last Admin: 02/13/21 12:04 Dose: 10 ml Documented by: Sodium Chloride (Sodium Chloride 0.9% 2.5 Ml Syringe) 2.5 ml FLUSH ASDIRECTED PRN PRN Reason: Keep Vein Open Last Admin: 02/13/21 12:08 Dose: 2.5 ml Documented by: - Patient Data Result Diagrams: 02/19/21 06:49 02/19/21 06:49 - Problem List & Annotations (1) Acute respiratory failure with hypoxia and hypercapnia SNOMED Code(s): 054788496 Code(s): J96.01 - ACUTE RESPIRATORY FAILURE WITH HYPOXIA; J96.02 - ACUTE RESPIRATORY FAILURE WITH HYPERCAPNIA Status: Acute (2) AMS (altered mental status) SNOMED Code(s): 049520749 Code(s): R41.82 - ALTERED MENTAL STATUS, UNSPECIFIED Status: Acute (3) Pneumonia due to COVID-19 virus SNOMED Code(s): 193106315887419963 Code(s): U07.1 - COVID-19; J12.82 - PNEUMONIA DUE TO CORONAVIRUS DISEASE 2019 Status: Acute - Plan Plan:: I have seen and evaluated the patient and agree with the residents note unless specified in my note
[2021-02-17 06:43] LABS: BLOOD UREA NITROGEN,BUN 17 mg/dL (7.0-18.0); CARBON DIOXIDE,CO2 30.4 mmol/L (21.0-32.0); CHLORIDE,CL 99 mmol/L (98-107); GLUCOSE RANDOM 104 mg/dL (74-106); POTASSIUM,K 5.4 mmol/L (3.5-5.1); SODIUM,NA 137 mmol/L (136-148)
--- NOTE | 2021-02-17 06:58 | PCM.PN ---
- General Info Date of Service: 02/17/21 Admission Dx/Problem (Free Text): Admission Diagnosis/Problem Admission Diagnosis/Problem Viral pneumonia Subjective Update: 52-year-old male admitted for Covid pneumonia requiring BiPAP on admission for hypercapnia. Patient's mental status improved. As per nursing staff, patient had a brief episode of confusion. When asked about it this morning, patient states he believed he was dreaming. He is alert and oriented x3. He is currently on Vapotherm 40 L, FiO2 50. Patient remains on Vapotherm last night. Patient denies fever, chills, chest pain, headache, dizziness, abdominal pain, nausea, vomiting or diarrhea. - Review of Systems General: Reports: Weakness, Fatigue. Denies: Fever, Chills Pulmonary: Reports: Shortness of Breath, Cough Cardiovascular: Denies: Chest Pain, Palpitations Gastrointestinal: Denies: Abdominal Pain, Constipation, Nausea, Vomiting Genitourinary: Denies: Dysuria Musculoskeletal: Denies: Leg Pain Skin: Denies: Cyanosis - Patient Data Vitals - Most Recent: Last Vital Signs Temp 96.3 F L 02/17/21 05:00 Pulse 88 02/13/21 18:00 Resp 15 02/17/21 06:00 BP 110/65 02/17/21 06:00 Pulse Ox 95 02/17/21 06:00 Weight - Most Recent: 211 lb 1.6 oz I&O - Last 24 Hours: Intake & Output 02/16/21 02/16/21 02/17/21 14:59 22:59 06:59 Intake Total 1220 250 Output Total 800 800 Balance 420 -550 Lab Results Last 24 Hours: Laboratory Results - last 24 hr 02/16/21 02/16/21 02/17/21 Range/Units 05:29 05:29 04:45 WBC 6.15 (4.0-11.0) K/uL RBC 5.78 (4.50-5.90) M/uL Hgb 17.2 H (13.0-17.0) g/dL Hct 52.6 H (38.0-50.0) % MCV 91.0 (80.0-98.0) fL MCH 29.8 (27.0-32.0) pg MCHC 32.7 (31.0-37.0) g/dL RDW Std Deviation 52.2 (28.0-62.0) fl RDW Coeff of Lakshmi 16 H (11.0-15.0) % Plt Count 366 (150-400) K/uL MPV 10.70 (7.40-12.00) fL Add Manual Diff YES Neutrophils % (Manual) 51 (48.0-80.0) % Band Neutrophils % 2 % Lymphocytes % (Manual) 39 (16.0-40.0) % Monocytes % (Manual) 8 (0.0-15.0) % Nucleated RBC % 0.0 /100WBC Absolute Seg Neuts 3.1 (1.4-5.7) Band Neutrophils # 0.1 Lymphocytes # (Manual) 2.4 (0.6-2.4) Monocytes # (Manual) 0.5 (0.0-0.8) Nucleated RBCs # 0 K/uL Reactive Lymphocytes MODERATE Sodium 135 L 137 (136-148) mmol/L Potassium 5.2 H 5.4 H (3.5-5.1) mmol/L Chloride 98 99 (98-107) mmol/L Carbon Dioxide 28.6 30.4 (21.0-32.0) mmol/L BUN 19 H 17 (7.0-18.0) mg/dL Creatinine 0.6 L 0.7 L (0.8-1.3) mg/dL Est Cr Clr Drug Dosing 147.30 126.25 mL/min Estimated GFR (MDRD) > 60.0 > 60.0 ml/min Glucose 98 104 (74-106) mg/dL Calcium 7.7 L 8.1 L (8.5-10.1) mg/dL Total Bilirubin 1.0 1.1 H (0.2-1.0) mg/dL AST 22 21 (15-37) IU/L ALT 27 27 (14-63) IU/L Alkaline Phosphatase 45 L 40 L (46-116) U/L Total Protein 6.5 6.3 L (6.4-8.2) g/dL Albumin 2.6 L 2.6 L (3.4-5.0) g/dL Globulin 3.9 3.7 (2.6-4.0) g/dL Albumin/Globulin Ratio 0.7 L 0.7 L (0.9-1.6) Ravi Results Last 24 Hours: Microbiology 02/13/21 12:42 Aerobic Blood Culture - Preliminary Blood - Venous - Lab Draw NO GROWTH AFTER 3 DAYS Anaerobic Blood Culture - Preliminary NO GROWTH AFTER 3 DAYS 02/13/21 12:35 Aerobic Blood Culture - Preliminary Blood - Venous NO GROWTH AFTER 3 DAYS Anaerobic Blood Culture - Preliminary NO GROWTH AFTER 3 DAYS Med Orders - Current: Current Medications Acetaminophen (Acetaminophen 325 Mg Tab) 650 mg PO Q4H PRN PRN Reason: Pain (Mild 1-3)/fever Albuterol/Ipratropium (Albuterol/Ipratropium 3.0-0.5 Mg/3 Ml Neb Soln) 3 ml NEB Q4HRRT PRN PRN Reason: Shortness Of Breath/wheezing Last Admin: 02/14/21 23:19 Dose: 3 ml Documented by: Albuterol/Ipratropium (Albuterol/Ipratropium 4 Gm Inhalation [place]) 0 gm INH QID [facility] Last Admin: 02/16/21 23:24 Dose: 1 puff Documented by: Baricitinib (Baricitinib 2 Mg Tab) 4 mg PO DAILY [facility] Last Admin: 02/16/21 10:06 Dose: 4 mg Documented by: Dexamethasone (Dexamethasone 10 Mg/Ml Sdv) 6 mg IVPUSH Q24H [facility] Stop: 02/23/21 15:01 Last Admin: 02/16/21 14:33 Dose: 6 mg Documented by: Enoxaparin Sodium (Enoxaparin 40 Mg/0.4 Ml Syringe) 40 mg SUBCUT Q24H [facility] Last Admin: 02/16/21 14:30 Dose: 40 mg Documented by: Glucagon (Glucagon,Human Recombinant 1 Mg Vial) 1 mg IM ASDIRECTED PRN PRN Reason: Hypoglycemia Pantoprazole Sodium 40 mg/ (Sodium Chloride) 10 mls @ 300 mls/hr IV DAILY [facility] Last Admin: 02/16/21 08:03 Dose: 300 mls/hr Documented by: Remdesivir 100 mg/ Sodium (Chloride) 100 mls @ 100 mls/hr IV Q24H [facility] Stop: 02/17/21 16:53 Last Admin: 02/16/21 15:41 Dose: 100 mls/hr Documented by: Ondansetron HCl (Ondansetron 4 Mg/2 Ml Sdv) 4 mg IVPUSH Q4H PRN PRN Reason: Nausea/Vomiting Sodium Chloride (Sodium Chloride 0.9% 10 Ml Syringe) 10 ml FLUSH ASDIRECTED PRN PRN Reason: Keep Vein Open Last Admin: 02/13/21 12:04 Dose: 10 ml Documented by: Sodium Chloride (Sodium Chloride 0.9% 2.5 Ml Syringe) 2.5 ml FLUSH ASDIRECTED PRN PRN Reason: Keep Vein Open Last Admin: 02/13/21 12:08 Dose: 2.5 ml Documented by: Discontinued Medications Dexamethasone (Dexamethasone 10 Mg/Ml Sdv) 6 mg IVPUSH ONETIME ONE Stop: 02/13/21 13:44 Last Admin: 02/13/21 13:53 Dose: 6 mg Documented by: Dextrose/Water (50% Dextrose In Water 50 Ml Syringe) 50 ml IVPUSH ONETIME ONE Stop: 02/14/21 08:58 Last Admin: 02/14/21 09:33 Dose: 50 ml Documented by: Remdesivir 200 mg/ Sodium (Chloride) 250 mls @ 250 mls/hr IV ONETIME ONE Stop: 02/13/21 13:44 Last Admin: 02/13/21 14:32 Dose: 250 mls/hr Documented by: Remdesivir 100 mg/ Sodium (Chloride) 100 mls @ 100 mls/hr IV Q24H [facility] Stop: 02/17/21 15:59 Last Admin: 02/14/21 17:34 Dose: Not Given Documented by: Calcium Gluconate 1 gm/ Sodium (Chloride) 110 mls @ 660 mls/hr IV ONETIME ONE Stop: 02/14/21 09:24 Last Admin: 02/14/21 09:49 Dose: 660 mls/hr Documented by: Insulin Human Regular (Insulin Regular, Human 100 Units/Ml 10 Ml Vial) 10 unit IVPUSH ONETIME ONE; Protocol Stop: 02/14/21 08:58 Last Admin: 02/14/21 09:34 Dose: 10 units Documented by: - Exam Quality Assessment: Supplemental Oxygen Urinary Catheter Total Time: 3Days 3Hours General: Alert, Oriented, Cooperative, No Acute Distress HEENT: Pupils Equal, Pupils Reactive Neck: Supple, Trachea Midline Lungs: Decreased Breath Sounds, Rales Cardiovascular: Regular Rate, Regular Rhythm GI/Abdominal Exam: Normal Bowel Sounds, Soft, Non-Tender Extremities: Normal Inspection. No: Cristóbal's Sign Skin: Warm, Dry, Intact Neurological: No New Focal Deficit - Patient Data Lab Results Last 24 hrs: Laboratory Results - last 24 hr 02/16/21 02/16/21 02/17/21 Range/Units 05:29 05:29 04:45 WBC 6.15 (4.0-11.0) K/uL RBC 5.78 (4.50-5.90) M/uL Hgb 17.2 H (13.0-17.0) g/dL Hct 52.6 H (38.0-50.0) % MCV 91.0 (80.0-98.0) fL MCH 29.8 (27.0-32.0) pg MCHC 32.7 (31.0-37.0) g/dL RDW Std Deviation 52.2 (28.0-62.0) fl RDW Coeff of Lakshmi 16 H (11.0-15.0) % Plt Count 366 (150-400) K/uL MPV 10.70 (7.40-12.00) fL Add Manual Diff YES Neutrophils % (Manual) 51 (48.0-80.0) % Band Neutrophils % 2 % Lymphocytes % (Manual) 39 (16.0-40.0) % Monocytes % (Manual) 8 (0.0-15.0) % Nucleated RBC % 0.0 /100WBC Absolute Seg Neuts 3.1 (1.4-5.7) Band Neutrophils # 0.1 Lymphocytes # (Manual) 2.4 (0.6-2.4) Monocytes # (Manual) 0.5 (0.0-0.8) Nucleated RBCs # 0 K/uL Reactive Lymphocytes MODERATE Sodium 135 L 137 (136-148) mmol/L Potassium 5.2 H 5.4 H (3.5-5.1) mmol/L Chloride 98 99 (98-107) mmol/L Carbon Dioxide 28.6 30.4 (21.0-32.0) mmol/L BUN 19 H 17 (7.0-18.0) mg/dL Creatinine 0.6 L 0.7 L (0.8-1.3) mg/dL Est Cr Clr Drug Dosing 147.30 126.25 mL/min Estimated GFR (MDRD) > 60.0 > 60.0 ml/min Glucose 98 104 (74-106) mg/dL Calcium 7.7 L 8.1 L (8.5-10.1) mg/dL Total Bilirubin 1.0 1.1 H (0.2-1.0) mg/dL AST 22 21 (15-37) IU/L ALT 27 27 (14-63) IU/L Alkaline Phosphatase 45 L 40 L (46-116) U/L Total Protein 6.5 6.3 L (6.4-8.2) g/dL Albumin 2.6 L 2.6 L (3.4-5.0) g/dL Globulin 3.9 3.7 (2.6-4.0) g/dL Albumin/Globulin Ratio 0.7 L 0.7 L (0.9-1.6) Result Diagrams: 02/17/21 04:45 02/17/21 04:45 Ravi Results Last 24 hrs: Microbiology 02/13/21 12:42 Aerobic Blood Culture - Preliminary Blood - Venous - Lab Draw NO GROWTH AFTER 3 DAYS Anaerobic Blood Culture - Preliminary NO GROWTH AFTER 3 DAYS 02/13/21 12:35 Aerobic Blood Culture - Preliminary Blood - Venous NO GROWTH AFTER 3 DAYS Anaerobic Blood Culture - Preliminary NO GROWTH AFTER 3 DAYS Sepsis Event Note - Evaluation Sepsis Screening Result: Severe Sepsis Risk - Focused Exam Vital Signs: Vital Signs Temp Resp BP Pulse Ox 02/17/21 06:00 15 110/65 95 02/17/21 05:00 96.3 F L 27 H 101/68 95 02/17/21 04:00 96.3 F L 10 L 125/75 94 L 02/17/21 03:00 18 107/89 92 L 02/17/21 02:00 22 H 93/43 L 94 L 02/17/21 01:00 20 90/41 L 95 02/17/21 00:00 97.0 F 22 H 114/49 L 97 02/16/21 23:00 11 L 107/59 L 95 02/16/21 22:00 19 146/83 H 95 02/16/21 21:00 20 135/70 96 02/16/21 20:00 97.1 F 17 135/73 95 02/16/21 19:17 14 93 L 02/16/21 19:00 126/88 96 - Problem List & Annotations (1) Pneumonia due to COVID-19 virus SNOMED Code(s): 392145045456148073 Code(s): U07.1 - COVID-19; J12.82 - PNEUMONIA DUE TO CORONAVIRUS DISEASE 2019 Status: Acute Current Visit: Yes (2) AMS (altered mental status) SNOMED Code(s): 570982255 Code(s): R41.82 - ALTERED MENTAL STATUS, UNSPECIFIED Status: Acute Current Visit: Yes - Problem List Review Problem List Initiated/Reviewed/Updated: Yes - My Orders Last 24 Hours: My Active Orders 02/16/21 09:30 Baricitinib [Olumiant] 4 mg PO DAILY 02/16/21 12:15 Arterial Line Discontinue [OM.PC] Routine 02/17/21 04:45 CBC WITH AUTO DIFF [HEME] DAILY 02/18/21 05:11 CBC WITH AUTO DIFF [HEME] DAILY 02/18/21 15:30 COMPREHENSIVE METABOLIC PN,CMP [CHEM] DAILY 02/19/21 05:11 CBC WITH AUTO DIFF [HEME] DAILY 02/19/21 15:30 COMPREHENSIVE METABOLIC PN,CMP [CHEM] DAILY 02/20/21 05:11 CBC WITH AUTO DIFF [HEME] DAILY 02/20/21 15:30 COMPREHENSIVE METABOLIC PN,CMP [CHEM] DAILY - Plan Plan:: Covid pneumonia, acute hypoxic and hypercapnic respiratory failure: -Baricitinib. -Remdesivir 100 mg daily starting 02/14/2021 x4 days. -Dexamethasone 6 mg daily. -Lovenox 40 mg daily. -Duo nebs. Combivent. -Acetaminophen 650. Zofran 4 mg. Protonix 40 mg daily. -Telemetry monitoring. Oxygen therapy.
[2021-02-17] MEDS: Albuterol/Ipratropium 4 GM Inhalation Spray INH SCH ×3 (06:59→17:12)
[2021-02-17] MEDS ORDERED: Sodium Chloride 0.9% 20 ML ONE (08:32)
[2021-02-17] MEDS: Pantoprazole 40 MG in Sodium Chloride 0.9% 10 ML IV SCH (08:33)
[2021-02-17] MEDS: Dexamethasone 10 MG/ML SDV IVPUSH SCH (14:29)
[2021-02-17] MEDS: Enoxaparin 40 MG/0.4 ML Syringe SUBCUT SCH (14:30)
[2021-02-17] MEDS: REMDESIVIR 100 MG in Sodium Chloride 0.9% 100 ML IV SCH (15:37)
[2021-02-18] MEDS: Albuterol/Ipratropium 4 GM Inhalation Spray INH SCH ×4 (00:54→17:34)
--- NOTE | 2021-02-18 07:47 | PCM.PN ---
- General Info Date of Service: 02/18/21 - Review of Systems Systems Review Comment:: feeling better, reports shortness of breath improving - Patient Data Vitals - Most Recent: Last Vital Signs Temp 36.3 C 02/18/21 03:00 Pulse 87 02/17/21 18:00 Resp 19 02/18/21 07:00 BP 129/82 02/18/21 07:00 Pulse Ox 91 L 02/18/21 07:00 Weight - Most Recent: 93.44 kg I&O - Last 24 Hours: Intake & Output 02/17/21 02/18/21 02/18/21 22:59 06:59 14:59 Intake Total 1220 850 Output Total 750 1050 Balance 470 -200 Lab Results Last 24 Hours: Laboratory Results - last 24 hr 02/17/21 02/18/21 Range/Units 04:45 06:20 WBC 6.47 7.31 (4.0-11.0) K/uL RBC 5.80 5.85 (4.50-5.90) M/uL Hgb 17.4 H 17.5 H (13.0-17.0) g/dL Hct 52.8 H 52.5 H (38.0-50.0) % MCV 91.0 89.7 (80.0-98.0) fL MCH 30.0 29.9 (27.0-32.0) pg MCHC 33.0 33.3 (31.0-37.0) g/dL RDW Std Deviation 51.2 50.3 (28.0-62.0) fl RDW Coeff of Lakshmi 15 15 (11.0-15.0) % Plt Count 355 387 (150-400) K/uL MPV 9.80 10.10 (7.40-12.00) fL Neut % (Auto) 58.7 (48.0-80.0) % Lymph % (Auto) 28.3 (16.0-40.0) % Schleicher % (Auto) 12.6 (0.0-15.0) % Eos % (Auto) 0.3 (0.0-7.0) % Baso % (Auto) 0.1 (0.0-1.5) % Neut # (Auto) 4.3 (1.4-5.7) K/uL Lymph # (Auto) 2.1 (0.6-2.4) K/uL Schleicher # (Auto) 0.9 H (0.0-0.8) K/uL Eos # (Auto) 0.0 (0.0-0.7) K/uL Baso # (Auto) 0.0 (0.0-0.1) K/uL Add Manual Diff YES Neutrophils % (Manual) 55 (48.0-80.0) % Band Neutrophils % 2 % Lymphocytes % (Manual) 36 (16.0-40.0) % Monocytes % (Manual) 7 (0.0-15.0) % Nucleated RBC % 0.0 0.0 /100WBC Absolute Seg Neuts 3.6 (1.4-5.7) Band Neutrophils # 0.1 Lymphocytes # (Manual) 2.3 (0.6-2.4) Monocytes # (Manual) 0.5 (0.0-0.8) Nucleated RBCs # 0 0 K/uL Reactive Lymphocytes FEW Ravi Results Last 24 Hours: Microbiology 02/13/21 12:42 Aerobic Blood Culture - Preliminary Blood - Venous - Lab Draw NO GROWTH AFTER 4 DAYS Anaerobic Blood Culture - Preliminary NO GROWTH AFTER 4 DAYS 02/13/21 12:35 Aerobic Blood Culture - Preliminary Blood - Venous NO GROWTH AFTER 4 DAYS Anaerobic Blood Culture - Preliminary NO GROWTH AFTER 4 DAYS Med Orders - Current: Current Medications Acetaminophen (Acetaminophen 325 Mg Tab) 650 mg PO Q4H PRN PRN Reason: Pain (Mild 1-3)/fever Albuterol/Ipratropium (Albuterol/Ipratropium 3.0-0.5 Mg/3 Ml Neb Soln) 3 ml NEB Q4HRRT PRN PRN Reason: Shortness Of Breath/wheezing Last Admin: 02/14/21 23:19 Dose: 3 ml Documented by: Albuterol/Ipratropium (Albuterol/Ipratropium 4 Gm Inhalation [place]) 0 gm INH QID [facility] Last Admin: 02/18/21 05:46 Dose: 1 puff Documented by: Baricitinib (Baricitinib 2 Mg Tab) 4 mg PO DAILY [facility] Last Admin: 02/17/21 08:05 Dose: 4 mg Documented by: Dexamethasone (Dexamethasone 10 Mg/Ml Sdv) 6 mg IVPUSH Q24H [facility] Stop: 02/23/21 15:01 Last Admin: 02/17/21 14:29 Dose: 6 mg Documented by: Enoxaparin Sodium (Enoxaparin 40 Mg/0.4 Ml Syringe) 40 mg SUBCUT Q24H [facility] Last Admin: 02/17/21 14:30 Dose: 40 mg Documented by: Glucagon (Glucagon,Human Recombinant 1 Mg Vial) 1 mg IM ASDIRECTED PRN PRN Reason: Hypoglycemia Pantoprazole Sodium 40 mg/ (Sodium Chloride) 10 mls @ 300 mls/hr IV DAILY [facility] Last Admin: 02/17/21 08:33 Dose: 300 mls/hr Documented by: Ondansetron HCl (Ondansetron 4 Mg/2 Ml Sdv) 4 mg IVPUSH Q4H PRN PRN Reason: Nausea/Vomiting Sodium Chloride (Sodium Chloride 0.9% 10 Ml Syringe) 10 ml FLUSH ASDIRECTED PRN PRN Reason: Keep Vein Open Last Admin: 02/13/21 12:04 Dose: 10 ml Documented by: Sodium Chloride (Sodium Chloride 0.9% 2.5 Ml Syringe) 2.5 ml FLUSH ASDIRECTED PRN PRN Reason: Keep Vein Open Last Admin: 02/13/21 12:08 Dose: 2.5 ml Documented by: Discontinued Medications Dexamethasone (Dexamethasone 10 Mg/Ml Sdv) 6 mg IVPUSH ONETIME ONE Stop: 02/13/21 13:44 Last Admin: 02/13/21 13:53 Dose: 6 mg Documented by: Dextrose/Water (50% Dextrose In Water 50 Ml Syringe) 50 ml IVPUSH ONETIME ONE Stop: 02/14/21 08:58 Last Admin: 02/14/21 09:33 Dose: 50 ml Documented by: Remdesivir 200 mg/ Sodium (Chloride) 250 mls @ 250 mls/hr IV ONETIME ONE Stop: 02/13/21 13:44 Last Admin: 02/13/21 14:32 Dose: 250 mls/hr Documented by: Remdesivir 100 mg/ Sodium (Chloride) 100 mls @ 100 mls/hr IV Q24H [facility] Stop: 02/17/21 15:59 Last Admin: 02/14/21 17:34 Dose: Not Given Documented by: Calcium Gluconate 1 gm/ Sodium (Chloride) 110 mls @ 660 mls/hr IV ONETIME ONE Stop: 02/14/21 09:24 Last Admin: 02/14/21 09:49 Dose: 660 mls/hr Documented by: Remdesivir 100 mg/ Sodium (Chloride) 100 mls @ 100 mls/hr IV Q24H [facility] Stop: 02/17/21 16:53 Last Admin: 02/17/21 15:37 Dose: 100 mls/hr Documented by: Sodium Chloride (Normal Saline) Confirm Administered Dose 20 mls @ as directed .ROUTE .STK-MED ONE Stop: 02/17/21 08:33 Last Admin: 02/17/21 09:00 Dose: Not Given Documented by: Insulin Human Regular (Insulin Regular, Human 100 Units/Ml 10 Ml Vial) 10 unit IVPUSH ONETIME ONE; Protocol Stop: 02/14/21 08:58 Last Admin: 02/14/21 09:34 Dose: 10 units Documented by: - Exam Urinary Catheter Total Time: 3Days 8Hours General: Alert, Oriented Lungs: Normal Respiratory Effort, Rhonchi Cardiovascular: Regular Rate, Regular Rhythm GI/Abdominal Exam: Soft, Non-Tender, No Distention Extremities: Non-Tender, No Pedal Edema Skin: Warm, Dry, Intact Neurological: No New Focal Deficit - Patient Data Lab Results Last 24 hrs: Laboratory Results - last 24 hr 02/17/21 02/18/21 Range/Units 04:45 06:20 WBC 6.47 7.31 (4.0-11.0) K/uL RBC 5.80 5.85 (4.50-5.90) M/uL Hgb 17.4 H 17.5 H (13.0-17.0) g/dL Hct 52.8 H 52.5 H (38.0-50.0) % MCV 91.0 89.7 (80.0-98.0) fL MCH 30.0 29.9 (27.0-32.0) pg MCHC 33.0 33.3 (31.0-37.0) g/dL RDW Std Deviation 51.2 50.3 (28.0-62.0) fl RDW Coeff of Lakshmi 15 15 (11.0-15.0) % Plt Count 355 387 (150-400) K/uL MPV 9.80 10.10 (7.40-12.00) fL Neut % (Auto) 58.7 (48.0-80.0) % Lymph % (Auto) 28.3 (16.0-40.0) % Schleicher % (Auto) 12.6 (0.0-15.0) % Eos % (Auto) 0.3 (0.0-7.0) % Baso % (Auto) 0.1 (0.0-1.5) % Neut # (Auto) 4.3 (1.4-5.7) K/uL Lymph # (Auto) 2.1 (0.6-2.4) K/uL Schleicher # (Auto) 0.9 H (0.0-0.8) K/uL Eos # (Auto) 0.0 (0.0-0.7) K/uL Baso # (Auto) 0.0 (0.0-0.1) K/uL Add Manual Diff YES Neutrophils % (Manual) 55 (48.0-80.0) % Band Neutrophils % 2 % Lymphocytes % (Manual) 36 (16.0-40.0) % Monocytes % (Manual) 7 (0.0-15.0) % Nucleated RBC % 0.0 0.0 /100WBC Absolute Seg Neuts 3.6 (1.4-5.7) Band Neutrophils # 0.1 Lymphocytes # (Manual) 2.3 (0.6-2.4) Monocytes # (Manual) 0.5 (0.0-0.8) Nucleated RBCs # 0 0 K/uL Reactive Lymphocytes FEW Result Diagrams: 02/18/21 06:20 02/17/21 04:45 Ravi Results Last 24 hrs: Microbiology 02/13/21 12:42 Aerobic Blood Culture - Preliminary Blood - Venous - Lab Draw NO GROWTH AFTER 4 DAYS Anaerobic Blood Culture - Preliminary NO GROWTH AFTER 4 DAYS 02/13/21 12:35 Aerobic Blood Culture - Preliminary Blood - Venous NO GROWTH AFTER 4 DAYS Anaerobic Blood Culture - Preliminary NO GROWTH AFTER 4 DAYS Sepsis Event Note - Evaluation Sepsis Screening Result: No Definite Risk - Focused Exam Vital Signs: Vital Signs Temp Resp BP Pulse Ox Pulse Ox 02/18/21 07:00 19 129/82 91 L 02/18/21 06:00 20 123/78 92 L 02/18/21 05:38 94 L 02/18/21 05:00 15 110/72 94 L 02/18/21 04:00 17 115/63 93 L 02/18/21 03:00 36.3 C 13 108/71 93 L 02/18/21 02:00 14 100/45 L 94 L 02/18/21 01:00 20 93 L 02/18/21 00:00 36.2 C 19 89/47 L 91 L 02/17/21 23:00 14 102/65 93 L 02/17/21 22:00 18 109/60 94 L 02/17/21 21:00 131/75 94 L 02/17/21 20:00 36.6 C 136/83 94 L - Problem List & Annotations (1) Pneumonia due to COVID-19 virus SNOMED Code(s): 795594942891914302 Code(s): U07.1 - COVID-19; J12.82 - PNEUMONIA DUE TO CORONAVIRUS DISEASE 2019 Status: Acute Current Visit: Yes - Problem List Review Problem List Initiated/Reviewed/Updated: Yes - My Orders Last 24 Hours: My Active Orders 02/18/21 07:19 Transfer Patient (Change bed) [ADT] Routine - Plan Plan:: 60 yo male admitted for Covid pneumonia, acute hypoxic and hypercapnic respiratory failure: -Acute hypoxic respiratory failure: improving weaned down to 2 L NC - COVID: continue Baricitinib. and dexamethason, finishe remdesivir. -Lovenox 40 mg daily.
[2021-02-18 07:57] LABS: BLOOD UREA NITROGEN,BUN 18 mg/dL (7.0-18.0); CARBON DIOXIDE,CO2 29.5 mmol/L (21.0-32.0); CHLORIDE,CL 98 mmol/L (98-107); GLUCOSE RANDOM 103 mg/dL (74-106); POTASSIUM,K 4.5 mmol/L (3.5-5.1); SODIUM,NA 132 mmol/L (136-148)
[2021-02-18] MEDS: Pantoprazole 40 MG in Sodium Chloride 0.9% 10 ML IV SCH (08:46)
[2021-02-18] MEDS: Enoxaparin 40 MG/0.4 ML Syringe SUBCUT SCH (15:35)
[2021-02-18] MEDS: Dexamethasone 10 MG/ML SDV IVPUSH SCH (15:35)
[2021-02-19] MEDS: Albuterol/Ipratropium 4 GM Inhalation Spray INH SCH ×3 (00:14→11:41)
[2021-02-19 07:41] LABS: BLOOD UREA NITROGEN,BUN 22 mg/dL (7.0-18.0); CHLORIDE,CL 96 mmol/L (98-107); GLUCOSE RANDOM 109 mg/dL (74-106); POTASSIUM,K 4.3 mmol/L (3.5-5.1); SODIUM,NA 132 mmol/L (136-148)
[2021-02-19] MEDS: Pantoprazole 40 MG in Sodium Chloride 0.9% 10 ML IV SCH (08:49)
[2021-02-19 11:44] VITALS: BP 117/71; PULSE 97
--- NOTE | 2021-02-19 12:24 | PCM.DCSUM1 ---
Discharge Summary - Discharge Data Discharge Date: 02/19/21 Discharge Disposition: Home, Self-Care 01 Condition: Good - Referral to Home Health Primary Care Physician: PCP None - Discharge Diagnosis/Problem(s) (1) Pneumonia due to COVID-19 virus SNOMED Code(s): [id number] ICD Code: U07.1 - COVID-19; J12.82 - PNEUMONIA DUE TO CORONAVIRUS DISEASE 2019 Status: Acute Current Visit: Yes - Patient Summary/Data Hospital Course: 60-year-old male with a history of obstructive sleep apnea is brought to the ER by EMS after coworkers found him altered and confused. ER course: Patient presents with altered mental status and hypoxia. Labored breathing and tachypneic. T 37.3. P1 100. BP 129/73. WBC 6.73. Hgb 17.7. Hematocrit 53.5. Platelet count 213. Sodium 133. Potassium 4.9. Chloride 31.1. BUN 24. Creatinine 1.1. Glucose 134. Troponin negative. CRP 5.9. Lactic acid 1.2. BNP 55. SARS-CoV-2 positive. CXR: Bilateral infiltrates and mild cardiomegaly. Head CT: No acute infarction or acute intracranial hemorrhage identified. Patient was treated with dexamethasone, baricitinib, and remdesivir. He initially required heated high flow nasal canula but this was eventual weaned off to simple nasal canula. His mentation did improve. Today he has been weaned off supplemental oxygen and is requesting discharge. His white blood cell count jumped to 23,920. This could be steroid induced. He denies any fevers, chills, rash or diarrhea. He feels well. I recommended that we watch him another night due to the elevated WBC but patient has refused. He will watch out for fevers or any new symptoms and return to the hospital if they occur. Patient is to follow up with his primary care doctor. - Patient Instructions Diet: Usual Diet as Tolerated Notify Provider of: Fever, Increased Pain, Nausea and/or Vomiting - Discharge Plan Home Medications: Home Meds . [No Known Home Meds] 02/13/21 [History] Patient Handouts: COVID-19 Frequently Asked Questions, COVID-19, COVID-19 Vaccine Information, COVID-19: How to Protect Yourself and Others - [facility] Referrals: PCP,None [Primary Care Provider] - - Discharge Summary/Plan Comment DC Time >30 min.: No Total # of Minutes for Discharge Time: 20 - Patient Data Vitals - Most Recent: Last Vital Signs Temp 36.8 C 02/19/21 11:42 Pulse 97 02/19/21 11:42 Resp 16 02/19/21 08:00 BP 117/71 02/19/21 11:42 Pulse Ox 93 L 02/19/21 11:42 Weight - Most Recent: 93.44 kg I&O - Last 24 hours: Intake & Output 02/18/21 02/19/21 02/19/21 22:59 06:59 14:59 Intake Total 1000 1000 Output Total 1100 950 Balance -100 50 Lab Results - Last 24 hrs: Laboratory Results - last 24 hr 02/19/21 02/19/21 02/19/21 Range/Units 06:49 06:49 11:50 WBC 23.92 H (4.0-11.0) K/uL RBC 5.84 (4.50-5.90) M/uL Hgb 17.8 H (13.0-17.0) g/dL Hct 52.4 H (38.0-50.0) % MCV 89.7 (80.0-98.0) fL MCH 30.5 (27.0-32.0) pg MCHC 34.0 (31.0-37.0) g/dL RDW Std Deviation 49.9 (28.0-62.0) fl RDW Coeff of Lakshmi 15 (11.0-15.0) % Plt Count 326 (150-400) K/uL MPV 9.80 (7.40-12.00) fL Add Manual Diff YES Neutrophils % (Manual) 72 (48.0-80.0) % Band Neutrophils % 13 % Lymphocytes % (Manual) 2 L (16.0-40.0) % Monocytes % (Manual) 3 (0.0-15.0) % Nucleated RBC % 0.0 /100WBC Absolute Seg Neuts 17.2 H (1.4-5.7) Band Neutrophils # 3.1 Lymphocytes # (Manual) 0.5 L (0.6-2.4) Monocytes # (Manual) 0.7 (0.0-0.8) Nucleated RBCs # 0 K/uL Sodium 132 L (136-148) mmol/L Potassium 4.3 (3.5-5.1) mmol/L Chloride 96 L (98-107) mmol/L Carbon Dioxide 28.0 (21.0-32.0) mmol/L BUN 22 H (7.0-18.0) mg/dL Creatinine 1.1 (0.8-1.3) mg/dL Est Cr Clr Drug Dosing 80.34 mL/min Estimated GFR (MDRD) > 60.0 ml/min Glucose 109 H (74-106) mg/dL Calcium 8.1 L (8.5-10.1) mg/dL Total Bilirubin 2.0 H (0.2-1.0) mg/dL AST 38 H (15-37) IU/L ALT 64 H (14-63) IU/L Alkaline Phosphatase 48 (46-116) U/L Total Protein 7.0 (6.4-8.2) g/dL Albumin 2.8 L (3.4-5.0) g/dL Globulin 4.2 H (2.6-4.0) g/dL Albumin/Globulin Ratio 0.7 L (0.9-1.6) Urine Color YELLOW Urine Appearance CLEAR Urine pH 6.0 (5.0-8.0) Ur Specific [place] 1.010 (1.001-1.035) Urine Protein NEGATIVE (NEGATIVE) mg/dL Urine Glucose (UA) NEGATIVE (NEGATIVE) mg/dL Urine Ketones NEGATIVE (NEGATIVE) mg/dL Urine Occult Blood NEGATIVE (NEGATIVE) Urine Nitrite NEGATIVE (NEGATIVE) Urine Bilirubin NEGATIVE (NEGATIVE) Urine Urobilinogen 0.2 (<2.0) EU/dL Ur Leukocyte Esterase NEGATIVE (NEGATIVE) COOPER Results - Last 24 hrs: Microbiology 02/13/21 12:42 Aerobic Blood Culture - Final Blood - Venous - Lab Draw NO GROWTH AFTER 5 DAYS Anaerobic Blood Culture - Final NO GROWTH AFTER 5 DAYS 02/13/21 12:35 Aerobic Blood Culture - Final Blood - Venous NO GROWTH AFTER 5 DAYS Anaerobic Blood Culture - Final NO GROWTH AFTER 5 DAYS Med Orders - Current: Current Medications Acetaminophen (Acetaminophen 325 Mg Tab) 650 mg PO Q4H PRN PRN Reason: Pain (Mild 1-3)/fever Last Admin: 02/19/21 00:14 Dose: 650 mg Documented by: Albuterol/Ipratropium (Albuterol/Ipratropium 3.0-0.5 Mg/3 Ml Neb Soln) 3 ml NEB Q4HRRT PRN PRN Reason: Shortness Of Breath/wheezing Last Admin: 02/14/21 23:19 Dose: 3 ml Documented by: Albuterol/Ipratropium (Albuterol/Ipratropium 4 Gm Inhalation Vansant) 0 gm INH QID [facility] Last Admin: 02/19/21 11:41 Dose: 1 puff Documented by: Dexamethasone (Dexamethasone 10 Mg/Ml Sdv) 6 mg IVPUSH Q24H [facility] Stop: 02/23/21 15:01 Last Admin: 02/18/21 15:35 Dose: 6 mg Documented by: Enoxaparin Sodium (Enoxaparin 40 Mg/0.4 Ml Syringe) 40 mg SUBCUT Q24H [facility] Last Admin: 02/18/21 15:35 Dose: 40 mg Documented by: Glucagon (Glucagon,Human Recombinant 1 Mg Vial) 1 mg IM ASDIRECTED PRN PRN Reason: Hypoglycemia Pantoprazole Sodium 40 mg/ (Sodium Chloride) 10 mls @ 300 mls/hr IV DAILY [facility] Last Admin: 02/19/21 08:49 Dose: 300 mls/hr Documented by: Ondansetron HCl (Ondansetron 4 Mg/2 Ml Sdv) 4 mg IVPUSH Q4H PRN PRN Reason: Nausea/Vomiting Sodium Chloride (Sodium Chloride 0.9% 10 Ml Syringe) 10 ml FLUSH ASDIRECTED PRN PRN Reason: Keep Vein Open Last Admin: 02/13/21 12:04 Dose: 10 ml Documented by: Sodium Chloride (Sodium Chloride 0.9% 2.5 Ml Syringe) 2.5 ml FLUSH ASDIRECTED PRN PRN Reason: Keep Vein Open Last Admin: 02/13/21 12:08 Dose: 2.5 ml Documented by: Discontinued Medications Baricitinib (Baricitinib 2 Mg Tab) 4 mg PO DAILY [facility] Last Admin: 02/19/21 08:48 Dose: 4 mg Documented by: Dexamethasone (Dexamethasone 10 Mg/Ml Sdv) 6 mg IVPUSH ONETIME ONE Stop: 02/13/21 13:44 Last Admin: 02/13/21 13:53 Dose: 6 mg Documented by: Dextrose/Water (50% Dextrose In Water 50 Ml Syringe) 50 ml IVPUSH ONETIME ONE Stop: 02/14/21 08:58 Last Admin: 02/14/21 09:33 Dose: 50 ml Documented by: Remdesivir 200 mg/ Sodium (Chloride) 250 mls @ 250 mls/hr IV ONETIME ONE Stop: 02/13/21 13:44 Last Admin: 02/13/21 14:32 Dose: 250 mls/hr Documented by: Remdesivir 100 mg/ Sodium (Chloride) 100 mls @ 100 mls/hr IV Q24H [facility] Stop: 02/17/21 15:59 Last Admin: 02/14/21 17:34 Dose: Not Given Documented by: Calcium Gluconate 1 gm/ Sodium (Chloride) 110 mls @ 660 mls/hr IV ONETIME ONE Stop: 02/14/21 09:24 Last Admin: 02/14/21 09:49 Dose: 660 mls/hr Documented by: Remdesivir 100 mg/ Sodium (Chloride) 100 mls @ 100 mls/hr IV Q24H [facility] Stop: 02/17/21 16:53 Last Admin: 02/17/21 15:37 Dose: 100 mls/hr Documented by: Sodium Chloride (Normal Saline) Confirm Administered Dose 20 mls @ as directed .ROUTE .STK-MED ONE Stop: 02/17/21 08:33 Last Admin: 02/17/21 09:00 Dose: Not Given Documented by: Insulin Human Regular (Insulin Regular, Human 100 Units/Ml 10 Ml Vial) 10 unit IVPUSH ONETIME ONE; Protocol Stop: 02/14/21 08:58 Last Admin: 02/14/21 09:34 Dose: 10 units Documented by:
== END 2021-02-19 13:00 | disposition home or self-care (01) | DRG 137 ==
LOC: MW.ED 11:46 → MW.ICU 14:06 → MW.MS 02-18 07:19
PROVIDERS: ADMIT Student in an Organized Health Care Education/Training Program; ATTEND Student in an Organized Health Care Education/Training Program
PROC: 8E0ZXY6 Isolation (ICD-10-PCS; principal; 2021-02-13)
PROC: XW033E5 Introduction of Remdesivir Anti-infective into Peripheral Vein, Percutaneous Approach, New Technology Group 5 (ICD-10-PCS; 2021-02-13)
PROC: 3E0333Z Introduction of Anti-inflammatory into Peripheral Vein, Percutaneous Approach (ICD-10-PCS; 2021-02-13)
PROC: 5A09557 Assistance with Respiratory Ventilation, Greater than 96 Consecutive Hours, Continuous Positive Airway Pressure (ICD-10-PCS; 2021-02-13)
PROC: 03HB33Z Insertion of Infusion Device into Right Radial Artery, Percutaneous Approach (ICD-10-PCS; 2021-02-14)
PROC: XW0DXM6 Introduction of Baricitinib into Mouth and Pharynx, External Approach, New Technology Group 6 (ICD-10-PCS; 2021-02-16)
DX: U07.1 COVID-19 (principal); J96.01 Acute respiratory failure with hypoxia; J96.02 Acute respiratory failure with hypercapnia; J12.82 Pneumonia due to coronavirus disease 2019; G47.33 Obstructive sleep apnea (adult) (pediatric); G93.41 Metabolic encephalopathy; E87.5 Hyperkalemia
CPT/HCPCS: 36415; 36600; 36620; 51702; 70450; 70450-26; 71045; 71045-26; 80053; 81003; 82248; 82803; 83605; 83880; 84484; 85025; 85730; 86140; 87040; 93005; 94640; 94660; 94664; 96374; 99291; A9270-GY; C9113; J0610; J1100; J1650; J1815-GY; J7050; J7620-GY; U0002